=== PATIENT | female | born 1955 | race Caucasian/White ===

== ENCOUNTER 2016-10-04 08:54 | Outpatient (CLI) ==
[2016-10-04 09:28] LABS: HEMATOCRIT 30.9 % (37.0-47.0); HEMOGLOBIN 9.2 g/dl (12.0-16.0); MEAN CORPUSCULAR HGB CONC 29.8 (31.8-35.4); MEAN CORPUSCULAR VOLUME 90.6 fl (81.0-99.0); RED BLOOD COUNT 3.41 10^6/ul (4.20-5.40); WHITE BLOOD COUNT 11.2 K/ul (4.6-10.2)
--- NOTE | 2016-10-04 09:32 | DI ---
EXAM: Two x-rays of the chest. Comparison: 11/10/2008. Reason for exam: Cough and chronic obstructive pulmonary disease. FINDINGS: No pneumothorax, pleural effusion, or focal consolidation. The cardiac silhouette is mil dly prominent in size but not significantly changed from the previous exam. The imaged osseous stru ctures are unremarkable. Impression: No acute cardiopulmonary process.
== END 2016-10-04 08:55 | disposition home or self-care (01) ==
LOC: RAD 08:54
PROVIDERS: ATTEND Internal Medicine
DX: D64.9 Anemia, unspecified (principal); R05 Cough; J44.9 Chronic obstructive pulmonary disease, unspecified
CPT/HCPCS: 36415; 85027

== ENCOUNTER 2016-10-05 08:45 | Outpatient (CLI) ==
--- NOTE | 2016-10-05 09:49 | CT ---
EXAM: CT of the abdomen pelvis with contrast History: Abdominal pain and anemia. Comparison: None available. Technique: Multiplanar CT images through the abdomen pelvis were obtained following administration of IV contrast Findings: 4 mm nodule within the right middle lobe. Lung bases are free of consolidation. No acut e osseous abnormalities. No discrete gallstones identified by CT. Small hiatal hernia. No focal liver or splenic lesions. The liver is mildly enlarged. Atherosclerotic vascular calcifications. Pancreas is within normal l imits. Adrenal glands are unremarkable. No renal masses. No free air. No ascites. No bowel obst ruction. Scattered colonic stool. Mild colonic diverticulosis. The appendix is normal. Bladder i s not well distended but the wall is not thickened. Adnexal structures appear appropriate for patie nt's age. Impression: 1. No acute intra-abdominal or pelvic process. 2. Mild hepatomegaly. 3. Small hiatal hernia. 4. Mild colonic diverticulosis.
== END 2016-10-05 08:46 | disposition home or self-care (01) ==
LOC: RAD 08:45
PROVIDERS: ATTEND Internal Medicine
DX: D64.9 Anemia, unspecified (principal); R10.9 Unspecified abdominal pain

== ENCOUNTER 2016-10-06 08:42 | Outpatient (CLI) ==
[2016-10-06 09:02] LABS: BASOPHILS % (AUTO) 0.3 % (0.0-3.0); EOSINOPHILS # (AUTO) 0.3 K/ul (0.0-0.7); HEMATOCRIT 31.3 % (37.0-47.0); HEMOGLOBIN 9.2 g/dl (12.0-16.0); IMMATURE GRANULOCYTE % (AUTO) 0.6 % (0.0-5.0); LYMPHOCYTES # (AUTO) 2.2 K/uL (0.60-3.4); LYMPHOCYTES % (AUTO) 20.4 (10.0-50.0); MEAN CORPUSCULAR HEMOGLOBIN 27.1 pg (27.0-31.0); MEAN CORPUSCULAR HGB CONC 29.4 (31.8-35.4); MEAN CORPUSCULAR VOLUME 92.1 fl (81.0-99.0); MONOCYTES # (AUTO) 0.9 K/uL (0.4-2.0); MONOCYTES % (AUTO) 8.4 (0-10); NEUTROPHILS # (AUTO) 7.3 K/ul (2.0-6.9); NEUTROPHILS % (AUTO) 67.3; PLATELET COUNT 375 10^3/uL (140-440); WHITE BLOOD COUNT 10.81 K/ul (4.6-10.2)
== END 2016-10-06 08:43 | disposition home or self-care (01) ==
LOC: LAB 08:42
PROVIDERS: ATTEND Internal Medicine
DX: D64.9 Anemia, unspecified (principal)
CPT/HCPCS: 36415; 85025

== ENCOUNTER 2016-10-09 08:46 | Outpatient (CLI) ==
[2016-10-09 09:04] LABS: BASOPHILS % (AUTO) 0.2 % (0.0-3.0); EOSINOPHILS # (AUTO) 0.4 K/ul (0.0-0.7); EOSINOPHILS % (AUTO) 3.1 % (0.0-7.0); HEMATOCRIT 31.4 % (37.0-47.0); HEMOGLOBIN 9.3 g/dl (12.0-16.0); LYMPHOCYTES % (AUTO) 17.5 (10.0-50.0); MEAN CORPUSCULAR HEMOGLOBIN 27.7 pg (27.0-31.0); MEAN CORPUSCULAR HGB CONC 29.6 (31.8-35.4); MEAN CORPUSCULAR VOLUME 93.5 fl (81.0-99.0); MONOCYTES # (AUTO) 0.8 K/uL (0.4-2.0); MONOCYTES % (AUTO) 6.8 (0-10); NEUTROPHILS # (AUTO) 8.2 K/ul (2.0-6.9); NEUTROPHILS % (AUTO) 71.4; PLATELET COUNT 377 10^3/uL (140-440); RED BLOOD COUNT 3.36 10^6/ul (4.20-5.40); WHITE BLOOD COUNT 11.39 K/ul (4.6-10.2)
== END 2016-10-09 08:47 | disposition home or self-care (01) ==
LOC: LAB 08:46
PROVIDERS: ATTEND Internal Medicine
DX: D64.9 Anemia, unspecified (principal)
CPT/HCPCS: 36415; 85025

== ENCOUNTER 2018-08-23 17:27 | Emergency (ER) ==
[2018-08-23] MEDS ORDERED: LIDOCAINE HCL 1% SDV SUBCUT STA (17:31)
[2018-08-23 17:34] VITALS: BP 147/68; TEMP 98.5; BMI 33.3
--- NOTE | 2018-08-23 18:09 | ED.PDOC ---
General ED Provider: Dr. STEFANIA SORENSEN Chief Complaint: Hand Laceration Stated Complaint: hand laceration left hand Time Seen by Physician: 17:30 (see photos) Mode of Arrival: Walk-In Information Source: Patient Exam Limitations: No limitations Primary Care Provider: AMY MADISON Nursing and Triage Documentation Reviewed and Agree: Yes Does patient meet sepsis criteria?: No System Inflammatory Response Syndrome: Not Applicable Sepsis Protocol: For patient's 13 years and over: Temp is 96.8 and below OR 101 and greater Pulse >90 BPM Resp >20/minute Acutely Altered Mental Status Are patient's symptoms suggestive of a new infection, such as: -Pneumonia -Skin, Soft Tissue -Endocarditis -UTI -Bone, Joint Infection -Implantable Device -Acute Abdominal Infection -Wound Infection -Meningitis -Blood Stream Catheter Infection -Unknown Skin Complaint Exam - Lac/Torso/Upper Ext. Complaint/Exam Location of Injury: Left (hand see photos) Mechanism of Injury: Laceration Onset/Duration: today 1 hr ago Symptoms Are: Still present Initial Severity: Mild Current Severity: Mild Aggravating: None Alleviating: None (by knife) Differential Diagnoses: Laceration Review of Systems - Review Of Systems Constitutional: Reports: No symptoms Eyes: Reports: No symptoms Ears, Nose, Mouth, Throat: Reports: No symptoms Respiratory: Reports: No symptoms Cardiac: Reports: No symptoms GI: Reports: No symptoms : Reports: No symptoms Musculoskeletal: Reports: No symptoms Skin: Reports: Other (laceration left hand ) Neurological: Reports: No symptoms Endocrine: Reports: No symptoms Hematologic/Lymphatic: Reports: No symptoms All Other Systems: Reviewed and Negative Past Medical History - Past Medical History Previously Healthy: Yes Endocrine: Reports: None Cardiovascular: Reports: None Respiratory: Reports: None Hematological: Reports: None Gastrointestinal: Reports: None Genitourinary: Reports: None Neuro/Psych: Reports: None Musculoskeletal: Reports: None Cancer: Reports: None Last Menstrual Period: menopause - Surgical History General Surgical History: Reports: None - Family History Family History: Reports: None - Social History Smoking Status: Current every day smoker, Heavy tobacco smoker Hx Substance Use: No Alcohol Screening: None - Immunizations Tetanus Shot up to Date: No Physical Exam - Physical Exam Appearance: Well-appearing, No pain distress, Well-nourished Eyes: SILVIA, EOMI, Conjunctiva clear ENT: Ears normal, Nose normal, Oropharynx normal Respiratory: Airway patent, Breath sounds clear, Breath sounds equal, Respirations nonlabored Cardiovascular: RRR, Pulses normal, No rub, No murmur GI/: Soft, Nontender, No masses, Bowel sounds normal, No Organomegaly Musculoskeletal: Normal strength, ROM intact, No edema, No calf tenderness Skin: Warm, Dry (see photos of laceration left hand ), Normal color Neurological: Sensation intact, Motor intact, Reflexes intact, Cranial nerves intact, Alert, Oriented Psychiatric: Affect appropriate, Mood appropriate Procedures - Laceration/Wound Repair No standard instances Wound Description: Linear Wound Length (cm): 0.4mm Wound Width: 1mm Wound Depth: 1mm Wound Explored: Clean Wound Irrigated: No Wound Prep: Saline, Betadine Anesthesia: Lidocaine (plain 1 cc) Wound Repaired With: Sutures Suture Size and Type: 2 Number of Sutures: 0 Layer Closure?: No Deep Layer Suture Size and Type: 0 Sterile Dressing Applied?: Yes (see photos ) Critical Care Note - Critical Care Note Total Time (mins): 0 Course - Course Orders, Labs, Meds: Orders Category Date Time Status Lidocaine HCl/Pf [Lidocaine HCl 1% Sdv] MEDS 08/23/18 17:31 Stat 5 ml SUBCUT ONCE STA Medications Discontinued Medications Generic Name Dose Route Start Last Admin Trade Name Freq PRN Reason Stop Dose Admin Lidocaine HCl 5 ml 08/23/18 17:31 08/23/18 18:01 Lidocaine Hcl 1% Sdv SUBCUT 08/23/18 17:32 5 ml ONCE STA Administration Vital Signs: Temp Pulse Resp BP Pulse Ox 08/23/18 17:27 98.5 F 82 20 147/68 H 95 Departure - Departure Time of Disposition: 18:09 Disposition: HOME SELF-CARE Discharge Problem: Laceration of hand Instructions: Laceration (ED), Stitches Removal (ED) Condition: Good Pt referred to PMD for follow-up: Yes IPMP verified?: No Additional Instructions: Please call your Family Physician as soon as possible to schedule a follow-up appointment. Allergies/Adverse Reactions: Allergies Penicillins Adverse Reaction (Verified 08/23/18 17:35) Home Medications: Ambulatory Orders 1 [Unobtainable] 08/23/18 Disposition Discussed With: Patient
== END 2018-08-23 18:23 | disposition home or self-care (01) ==
LOC: ED 17:27
DX: S61.412A Laceration without foreign body of left hand, initial encounter (principal); W26.0XXA Contact with knife, initial encounter; F17.210 Nicotine dependence, cigarettes, uncomplicated
CPT/HCPCS: 99283

== ENCOUNTER 2018-10-16 14:42 | Outpatient (CLI) | END 2018-10-16 14:43 | disposition home or self-care (01) | LOC: LAB 14:42 | PROVIDERS: ATTEND Internal Medicine | DX: E87.5 Hyperkalemia (principal) | CPT/HCPCS: 36415; 80053 ==

== ENCOUNTER 2019-06-15 10:11 | Inpatient (IN) ==
[2019-06-15] MEDS ORDERED: ALBUTEROL 0.083% NEB NEB STA (10:35)
[2019-06-15 10:54] LABS: HEMATOCRIT 29.1 % (37.0-47.0)
--- NOTE | 2019-06-15 11:27 | ED.PDOC ---
General ED Provider: Dr. KINGA PADGETT Chief Complaint: Respiratory Complaint Stated Complaint: Shortness of breath worse with Minimal exertion. Minimal chest tightness Time Seen by Physician: 10:30 Mode of Arrival: Walk-In Information Source: Patient Exam Limitations: No limitations Primary Care Provider: AMY ORTIZ Nursing and Triage Documentation Reviewed and Agree: Yes Does patient meet sepsis criteria?: No If yes, has appropriate treatment been initiated?: No System Inflammatory Response Syndrome: Not Applicable Sepsis Protocol: For patient's 13 years and over: Temp is 96.8 and below OR 101 and greater Pulse >90 BPM Resp >20/minute Acutely Altered Mental Status Are patient's symptoms suggestive of a new infection, such as: -Pneumonia -Skin, Soft Tissue -Endocarditis -UTI -Bone, Joint Infection -Implantable Device -Acute Abdominal Infection -Wound Infection -Meningitis -Blood Stream Catheter Infection -Unknown Respiratory Complaint Exam Shortness of Air Complaint/Exam Symptoms Are: Still present Timing: Intermittent Initial Severity: Moderate Current Severity: Mild Character: Reports Dyspnea at rest and Dyspnea on exertion Aggravating: Reports Deep breaths, Recumbent position and URI Alleviating: Reports Upright position Associated Signs and Symptoms: Reports Cough, Wheezing and Nasal congestion Related History: Reports Similar episode Pulmonary Embolism Risk Factors: Reports None Cardiac Risk Factors: Reports Smoking, Diabetes and Hypertension; Denies CAD Pseudomonas Risk Factors: Reports None Tuberculosis Risk Factors: Reports None Home Oxygen Use: No Recent Stress Test: No Recent Echo/LV Function: No Respiratory Distress: Mild Stridor Present: No Tracheal Deviation: No Subcutaneous Emphysema: No Accessory Muscle Use: No Retractions: Not Present Diminished Breath Sounds: No Prolonged Expiratory Phase: No Unable to Speak Full Sentences: No Fatigue: Yes Leg Swelling: No Len's Sign Present: No Grunting Respirations: No Kussmaul Respirations: No Differential Diagnoses: Chest Wall Pain, COPD Exacerbation, Bronchospasm and URI Review of Systems Review Of Systems Constitutional: Reports No symptoms Eyes: Reports No symptoms Ears, Nose, Mouth, Throat: Reports No symptoms Respiratory: Reports Cough, Short of air, Stridor and Wheezing Cardiac: Reports No symptoms and Palpitations; Denies Chest pain, Edema, Irregular heart rate and Lightheadedness GI: Reports No symptoms : Reports No symptoms Musculoskeletal: Reports No symptoms Skin: Reports No symptoms Neurological: Reports No symptoms Endocrine: Reports No symptoms Hematologic/Lymphatic: Reports No symptoms All Other Systems: Reviewed and Negative PFSH Medical History (Updated 06/16/19 @ 08:34 by PO CORONA) Diabetes (Acute) Hx of tonsillectomy (Acute) Hypertension (Acute) Pneumonia (Acute) Family History (Updated 06/15/19 @ 13:40 by SONDRA GÓMEZ, RN) Mother Diabetes Social History (Updated 06/15/19 @ 13:40 by SONDRA GÓMEZ, RN) Smoking and tobacco status: Current every day smoker Tobacco type: cigarettes Tobacco: How many years used: 45 (1 PACK PER DAY) Second hand smoke exposure: Yes Female Reproductive History Menstrual Hx Hysterectomy: No Hx Tubal Ligation: Yes Physical Exam Physical Exam Appearance: Ill-appearing Ill-appearing: Mild Pain Distress: Mild Eyes: SILVIA, EOMI and Conjunctiva clear ENT: Ears normal, Nose normal and Oropharynx normal Neck: Supple Respiratory: Airway patent, Breath sounds clear, Breath sounds diminished, Respirations nonlabored and Wheezes Cardiovascular: RRR, Pulses normal, No rub and No murmur GI/: Soft, Nontender, No masses, Bowel sounds normal and No Organomegaly Musculoskeletal: Normal strength, ROM intact, No edema and No calf tenderness Skin: Warm, Dry and Normal color Neurological: Sensation intact, Motor intact, Reflexes intact, Cranial nerves i ntact, Alert and Oriented Psychiatric: Affect appropriate and Mood appropriate Interpretation Radiology Interpretation Radiology Interpretation By: Radiologist Exam Interpreted: CXR (Mild right basilar atelectasis and/or consolidation. Trace right pleural effusion versus costophrenic angle atelectasis. Mild interstitial prominence could represent bronchiolitis or interstitial edema.) EKG Interpretation Time of EKG #1: 10:43 Rate: Normal Rhythm: Sinus Ectopy: None [place]: [place] ST Segment: Normal Interpretation: non specific intraventricular block Physician Notification Case Discussed Physician Notified: Dr Ortiz -agrees with admission Time of Notification: 12:40 Critical Care Note Critical Care Note Total Time (mins): 30 Course Course Hematology/Chemistry: 06/19/19 05:20 06/19/19 05:20 Orders, Labs, Meds: Lab Review 06/15/19 06/15/19 06/15/19 10:40 10:49 10:49 WBC 7.81 RBC 2.98 L Hgb 9.0 L Hct 29.1 L MCV 97.7 MCH 30.2 MCHC 30.9 L RDW Coeff of Radha 13.3 Plt Count 221 Immature Gran % (Auto) 0.4 Neut % (Auto) 79.6 Lymph % (Auto) 8.8 L [place] % (Auto) 10.0 Eos % (Auto) 0.9 Baso % (Auto) 0.3 Immature Gran # (Auto) 0.0 Neut # (Auto) 6.2 Lymph # (Auto) 0.7 [place] # (Auto) 0.8 Eos # (Auto) 0.1 Baso # (Auto) 0.0 Puncture Site O2 Saturation ABG pH ABG pCO2 ABG pO2 ABG HCO3 ABG Total CO2 ABG Base Excess [place] Test FiO2 % Sodium 137.2 Potassium 4.69 Chloride 105.6 Carbon Dioxide 22.9 Anion Gap 13.39 BUN 9.0 Creatinine 0.80 Estimated GFR (MDRD) 73.00 BUN/Creatinine Ratio 11.25 Glucose 182.6 H Calcium 8.83 Total Bilirubin 0.50 AST 37.4 H ALT 26.9 Alkaline Phosphatase 136.9 Troponin I < 0.012 Total Protein 7.23 Albumin 3.85 Globulin 3.38 Albumin/Globulin Ratio 1.13 Urine Color Urine Clarity Urine pH Ur Specific [place] Urine Protein Urine Glucose (UA) Urine Ketones Urine Blood Urine Nitrite Urine Bilirubin Urine Urobilinogen Ur Leukocyte Esterase Urine Microscopic RBC Ur Squamous Epith Cells Urine Mucus Influ A Molecular Assay Negative by naat Influ B Molecular Assay Negative by naat 06/15/19 06/15/19 11:05 11:30 WBC RBC Hgb Hct MCV MCH MCHC RDW Coeff of Radha Plt Count Immature Gran % (Auto) Neut % (Auto) Lymph % (Auto) [place] % (Auto) Eos % (Auto) Baso % (Auto) Immature Gran # (Auto) Neut # (Auto) Lymph # (Auto) [place] # (Auto) Eos # (Auto) Baso # (Auto) Puncture Site Rr O2 Saturation 94.0 L ABG pH 7.400 ABG pCO2 33.9 L ABG pO2 69.0 L ABG HCO3 21.0 L ABG Total CO2 22 ABG Base Excess -4 L [place] Test + FiO2 % 21.0 Sodium Potassium Chloride Carbon Dioxide Anion Gap BUN Creatinine Estimated GFR (MDRD) BUN/Creatinine Ratio Glucose Calcium Total Bilirubin AST ALT Alkaline Phosphatase Troponin I Total Protein Albumin Globulin Albumin/Globulin Ratio Urine Color Yellow Urine Clarity Clear Urine pH 5.0 Ur Specific [place] 1.025 Urine Protein 1+ Urine Glucose (UA) Negative Urine Ketones Negative Urine Blood 1+ Urine Nitrite Negative Urine Bilirubin Negative Urine Urobilinogen 0.2 Ur Leukocyte Esterase Negative Urine Microscopic RBC 2-5 Ur Squamous Epith Cells 5-10 Urine Mucus 1+ Influ A Molecular Assay Influ B Molecular Assay Orders Category Date Time Status ABG DRAW REQUEST Stat CARDIO 06/15/19 11:31 Completed EKG-(ED ONLY) Stat CARDIO 06/15/19 10:35 Completed NEBULIZER TREATMENT Stat CARDIO 06/15/19 10:37 Completed NEBULIZER TREATMENT Stat CARDIO 06/15/19 11:51 Completed OXYGEN Routine CARDIO 06/15/19 11:54 Completed ABG Stat LAB 06/15/19 11:30 Completed CBC W/ AUTO DIFF Stat LAB 06/15/19 10:49 Completed CMP [COMPREHENSIVE METABOLIC PANEL] Stat LAB 06/15/19 10:49 Completed FLU A & B MOLECULAR [FLU A/B MOLECULAR] Stat LAB 06/15/19 10:40 Completed TROPONIN I Stat LAB 06/15/19 10:49 Completed UA [URINALYSIS C & S IF INDICATED] Stat LAB 06/15/19 11:05 Completed Albuterol Sulfate 0.083% Neb [Albuterol 0.083% Neb] MEDS 06/15/19 10:35 Discontinued 2.5 mg NEB ONCE STA Azithromycin [Zithromax] MEDS 06/15/19 11:50 Discontinued 500 mg PO ONCE STA Budesonide [Pulmicort 0.5 mg/2 ml] MEDS 06/15/19 21:33 Discontinued 0.5 mg NEB ONCE STA Ceftriaxone/D5w 1 gm Premix [Rocephin 1 gm/50 ml D5w] MEDS 06/15/19 11:50 Discontinued 1 gm in 50 ml IV ONCE Ipratropium/Albuterol Neb [Duoneb] MEDS 06/15/19 11:50 Discontinued 3 ml NEB ONCE STA Methylprednisolone Sod Succ/Pf [Solu-Medrol 125 mg] MEDS 06/15/19 11:50 Discontinued 125 mg IVP ONCE STA Sodium Chloride 0.9% [Sodium Chloride] 1,000 ml MEDS 06/15/19 11:55 Discontinued IV BOLUS CHEST, 2 VIEWS PA & LAT Stat RADS 06/15/19 10:35 Completed Medications Discontinued Medications Generic Name Dose Route Start Last Admin Trade Name Freq PRN Reason Stop Dose Admin Acetaminophen 650 mg 06/15/19 12:57 Tylenol PO Q4H PRN Fever >101 Albuterol Sulfate 2.5 mg 06/15/19 10:35 06/15/19 10:50 Albuterol 0.083% Neb NEB 06/15/19 10:36 2.5 mg ONCE STA Administration Albuterol/Ipratropium 3 ml 06/15/19 11:50 06/15/19 12:33 Duoneb NEB 06/15/19 11:51 3 ml ONCE STA Administration Albuterol/Ipratropium 3 ml 06/15/19 14:00 06/19/19 14:06 Duoneb NEB Not Given RTQID WILL Azithromycin 500 mg 06/15/19 11:50 06/15/19 12:04 Zithromax PO 06/15/19 11:51 500 mg ONCE STA Administration Azithromycin 250 mg 06/17/19 09:00 06/19/19 08:53 Zithromax PO 06/20/19 09:01 250 mg DAILY WILL Administration Bisoprolol Fumarate 10 mg 06/16/19 09:00 06/19/19 08:51 Zebeta PO 10 mg DAILY WILL Administration Budesonide 0.5 mg 06/15/19 21:33 06/16/19 05:13 Pulmicort 0.5 Mg/2 Ml NEB 06/15/19 21:34 0.5 mg ONCE STA Administration Cephalexin 500 mg 06/19/19 05:00 06/19/19 12:54 Keflex PO 06/22/19 04:59 500 mg Q8HR WILL Administration Ezetimibe 10 mg 06/16/19 09:00 06/19/19 08:52 Zetia PO 10 mg DAILY WILL Administration Enoxaparin Sodium 40 mg 06/15/19 13:30 06/19/19 08:55 Lovenox SUBCUT Not Given DAILY WILL Furosemide 20 mg 06/16/19 10:04 06/16/19 10:39 Lasix IVP 06/16/19 10:05 20 mg ONCE STA Administration CEFTRIAXONE/D5W 1 GM PREMIX 1 gm in 50 mls @ 75 mls/hr 06/15/19 11:50 06/15/19 12:05 Rocephin 1 Gm/50 Ml D5w IV 06/15/19 12:29 75 mls/hr ONCE STA Administration Sodium Chloride 1,000 mls @ 1,000 mls/hr 06/15/19 11:55 06/15/19 12:05 Sodium Chloride IV 06/15/19 12:54 1,000 mls/hr BOLUS STA Administration Sodium Chloride 1,000 mls @ 75 mls/hr 06/15/19 13:30 06/16/19 14:08 Sodium Chloride IV Not Given .[id number] WILL CEFTRIAXONE/D5W 1 GM PREMIX 1 gm in 50 mls @ 75 mls/hr 06/16/19 09:00 06/18/19 08:47 Rocephin 1 Gm/50 Ml D5w IV 06/19/19 08:59 75 mls/hr DAILY WILL Administration Lorazepam 0.5 mg 06/16/19 10:05 06/16/19 20:49 Ativan PO 0.5 mg BEDTIME PRN Administration Restlessness Lorazepam 0.5 - 1 mg 06/17/19 18:51 06/18/19 21:18 Ativan PO 1 mg BEDTIME PRN Administration Restlessness Losartan Potassium 25 mg 06/17/19 09:00 06/19/19 08:52 Cozaar PO 25 mg DAILY WILL Administration Metformin HCl 1,000 mg 06/15/19 21:00 06/16/19 20:49 Glucophage PO 1,000 mg BID WILL Administration Metformin HCl 1,000 mg 06/17/19 09:00 06/19/19 08:51 Glucophage PO 1,000 mg BIDWM WILL Administration Methylprednisolone Sodium Succinate 125 mg 06/15/19 11:50 06/15/19 12:05 Solu-Medrol 125 Mg IVP 06/15/19 11:51 125 mg ONCE STA Administration Methylprednisolone Sodium Succinate 125 mg 06/15/19 21:00 06/19/19 05:10 Solu-Medrol 125 Mg IVP 125 mg Q8HR WILL Administration Ondansetron HCl 4 mg 06/15/19 12:57 Zofran 4 Mg/2 Ml IVP Q6H PRN Nausea / Vomiting Prednisone 10 mg 06/19/19 08:30 06/19/19 08:53 Prednisone PO 10 mg DAILYWM WILL Administration Promethazine HCl/Codeine 10 ml 06/15/19 17:56 06/18/19 20:22 Phenergan With Codeine 6.25/10 Mg/5 Ml PO 10 ml Q6H PRN Administration Cough Simvastatin 40 mg 06/16/19 09:00 06/19/19 08:52 Zocor PO 40 mg DAILY WILL Administration Sitagliptin Phosphate 100 mg 06/16/19 09:00 06/19/19 08:52 Januvia PO 100 mg DAILY WILL Administration Sodium Chloride 1 syr 06/17/19 13:00 06/19/19 12:54 Saline Flush IVF 1 syr Q8HR WILL Administration Tramadol HCl 50 mg 06/16/19 10:05 06/18/19 21:18 Ultram PO 50 mg BEDTIME PRN Administration Restlessness Vital Signs: Temp Pulse Resp BP Pulse Ox 06/15/19 10:12 97.4 F L 98 H 20 180/68 H 93 L Discharge Plan Discharge Patient Disposition: ADMITTED INPATIENT Discharge Problem: Pneumonia ED Provider: KINGA PADGETT Condition: Stable Discharge Date/Time: 06/15/19 13:16
--- NOTE | 2019-06-15 11:33 | DI ---
EXAMINATION: Frontal and lateral views of the chest. HISTORY: Shortness of breath COMPARISON: 10/04/2016 FINDINGS: Mild lateral right basilar opacity is seen with slight right costophrenic angle blunting. Mild inter stitial prominence is identified. No pneumothorax is seen. The cardiomediastinal silhouette is within normal limits. Aortic calcified atherosclerotic plaque is seen. IMPRESSION: Mild right basilar atelectasis and/or consolidation. Trace right pleural effusion versus costophrenic angle atelectasis. Mild interstitial prominence could represent bronchiolitis or interstitial edema.
[2019-06-15] MEDS ORDERED: ROCEPHIN 1 GM/50 ML D5W 1 GM/50 ML BAG IV STA (11:50)
[2019-06-15] MEDS ORDERED: ZITHROMAX PO STA (11:50)
[2019-06-15] MEDS ORDERED: DUONEB NEB STA (11:50)
[2019-06-15] MEDS ORDERED: SOLU-MEDROL 125 MG IVP STA (11:50)
[2019-06-15] MEDS ORDERED: SODIUM CHLORIDE 1,000 ML IV STA (11:55)
[2019-06-15] MEDS ORDERED: TYLENOL PO PRN (12:57)
[2019-06-15] MEDS ORDERED: ZOFRAN 4 MG/2 ML IVP PRN (12:57)
[2019-06-15] MEDS: SODIUM CHLORIDE 1,000 ML IV SCH (13:29)
[2019-06-15 13:31] VITALS: BMI 33.5
[2019-06-15] MEDS: LOVENOX SUBCUT SCH (13:31)
[2019-06-15] MEDS: DUONEB NEB SCH ×2 (14:59→20:36)
[2019-06-15] MEDS: PHENERGAN WITH CODEINE 6.25/10 MG/5 ML PO PRN (18:25)
[2019-06-15] MEDS: GLUCOPHAGE PO SCH (20:06)
[2019-06-15] MEDS: SOLU-MEDROL 125 MG IVP SCH (20:06)
[2019-06-15] MEDS ORDERED: PULMICORT 0.5 MG/2 ML NEB STA (21:33)
[2019-06-16] MEDS: PHENERGAN WITH CODEINE 6.25/10 MG/5 ML PO PRN ×3 (00:27→19:56)
[2019-06-16] MEDS: SODIUM CHLORIDE 1,000 ML IV SCH ×2 (00:29→14:08)
[2019-06-16] MEDS: DUONEB NEB SCH ×4 (04:36→20:40)
[2019-06-16 05:04] LABS: HEMATOCRIT 29.4 % (37.0-47.0)
[2019-06-16] MEDS: SOLU-MEDROL 125 MG IVP SCH ×3 (05:25→20:48)
--- NOTE | 2019-06-16 09:17 | PCM.PROG ---
Attending Provider: ATTENDING PROVIDER: Dr. AMY MADISON This patient is seen with Dinah Low, Nurse Practitioner. DATE OF SERVICE: 06/16/19 SUBJECTIVE: This 63 year old /WHITE F was hospitalized 06/15/19. The patient is lying in bed resting comfortably. She came in with shortness of breath. She has REVIEW OF SYSTEMS: CONSTITUTIONAL: Positive for weakness. No night sweats. No fatigue, malaise, lethargy. No fever or chills. HEENT: Eyes: No visual changes. No eye pain. No eye discharge. ENT: No runny nose. No epistaxis. No sinus pain. No odynophagia. No congestion. RESPIRATORY: Cough. No hemoptysis. Shortness of breath. CARDIOVASCULAR: No angina symptoms. No CHF symptoms. No atypical chest pain for CAD. No palpitations. No orthopnea.. GASTROINTESTINAL: No abdominal pain. No nausea or vomiting. No diarrhea or constipation. No hematemesis. No hematochezia. GENITOURINARY: No urgency. No frequency. No dysuria. No hematuria. No obstructive symptoms. No discharge. No pain. No significant abnormal bleeding. MUSCULOSKELETAL: No musculoskeletal pain; no joint swelling. NEUROLOGICAL: Awake, alert, oriented to time, place and person. No headache. No neck pain. No syncope. No seizures. No dizziness. PSYCHIATRIC: Not anxious. No depression. No suicidal thoughts. No homicidal thoughts. SKIN: No rash. No lesions. No wounds. ENDOCRINE: No unexplained weight loss. No weight gain. HEMATOLOGIC/LYMPHATIC: No anemia. No purpura. No petechiae. No prolonged or ex cessive bleeding. No palpable lymph nodes. PHYSICAL EXAMINATION: GENERAL: The patient is awake, alert and oriented, lying/sitting in bed in no distress. VITAL SIGNS: Temperature 98.0 F, Pulse 99, Respiratory Rate 15, BP 133/57, Pulse Ox 94% HEENT: Head normocephalic, atraumatic. Eyes: Extraocular muscles are intact. Pupils are equal, round and reactive to light and accommodation. Ears: No lesions. Nose appeared normal. Throat: No exudate or erythema. NECK: Supple. No JVD, no carotid bruit. No lymphadenopathy or thyromegaly. LUNGS: Severely diminished breath sounds bilaterally. Clear to auscultation. Percussion note normal. Chest symmetrical. HEART: S1, S2, no S3. No murmurs. No cyanosis or clubbing. No ascites. Pulses: Dorsalis pedis and posterior tibial pulses +1 to +2 both sides. ABDOMEN: Soft. Non-tender. Bowel sounds active. No CVA tenderness. No mass felt. EXTREMITIES: No edema. Full range of motion of all extremities, equal. NEUROLOGIC: No focal deficit. Cranial nerves II through XII are grossly intact. No headache, no double vision or headache. SKIN: Not dry. Intact. Turgor-normal. LYMPHATIC: No palpable lymph nodes/no lymphedema. MUSCULOSKELETAL: Normal joints with no swelling. Muscle tone is normal. LAB REVIEW: 06/16/19 04:38 06/16/19 04:38 06/16/19 04:38: Sodium 138.0, Potassium 4.81, Chloride 106.8, Carbon Dioxide 21.9 L, Anion Gap 14.11, BUN 13.4, Creatinine 0.87, Estimated GFR (MDRD) 66.00, BUN/Creatinine Ratio 15.40, Glucose 188.8 H, Calcium 9.32, Total Bilirubin 0.42, AST 30.8, ALT 27.3, Alkaline Phosphatase 127.7, Total Protein 7.23, Albumin 3.88, Globulin 3.35, Albumin/Globulin Ratio 1.15 06/16/19 04:38: WBC 7.00, RBC 3.05 L, Hgb 9.2 L, Hct 29.4 L, MCV 96.4, MCH 30.2, MCHC 31.3 L, RDW Coeff of Radha 13.4, Plt Count 245, Immature Gran % (Auto) 1.0, Neut % (Auto) 83.0, Lymph % (Auto) 12.6, [place] % (Auto) 3.3, Eos % (Auto) 0.1, Baso % (Auto) 0.0, Immature Gran # (Auto) 0.1, Neut # (Auto) 5.8, Lymph # (Auto) 0.9, [place] # (Auto) 0.2 L, Eos # (Auto) 0.0, Baso # (Auto) 0.0 06/15/19 11:30: Puncture Site Rr, O2 Saturation 94.0 L, ABG pH 7.400, ABG pCO2 33.9 L, ABG pO2 69.0 L, ABG HCO3 21.0 L, ABG Total CO2 22, ABG Base Excess -4 L, [place] Test +, FiO2 % 21.0 06/15/19 11:05: Urine Color Yellow, Urine Clarity Clear, Urine pH 5.0, Ur Specific [place] 1.025, Urine Protein 1+, Urine Glucose (UA) Negative, Urine Ketones Negative, Urine Blood 1+, Urine Nitrite Negative, Urine Bilirubin Negative, Urine Urobilinogen 0.2, Ur Leukocyte Esterase Negative, Urine Microscopic RBC 2-5, Ur Squamous Epith Cells 5-10, Urine Mucus 1+ 06/15/19 10:49: Sodium 137.2, Potassium 4.69, Chloride 105.6, Carbon Dioxide 22.9, Anion Gap 13.39, BUN 9.0, Creatinine 0.80, Estimated GFR (MDRD) 73.00, BUN/Creatinine Ratio 11.25, Glucose 182.6 H, Calcium 8.83, Total Bilirubin 0.50, AST 37.4 H, ALT 26.9, Alkaline Phosphatase 136.9, Troponin I < 0.012, Total Protein 7.23, Albumin 3.85, Globulin 3.38, Albumin/Globulin Ratio 1.13 06/15/19 10:49: WBC 7.81, RBC 2.98 L, Hgb 9.0 L, Hct 29.1 L, MCV 97.7, MCH 30.2, MCHC 30.9 L, RDW Coeff of Radha 13.3, Plt Count 221, Immature Gran % (Auto) 0.4, Neut % (Auto) 79.6, Lymph % (Auto) 8.8 L, [place] % (Auto) 10.0, Eos % (Auto) 0.9, Baso % (Auto) 0.3, Immature Gran # (Auto) 0.0, Neut # (Auto) 6.2, Lymph # (Auto) 0.7, [place] # (Auto) 0.8, Eos # (Auto) 0.1, Baso # (Auto) 0.0 06/15/19 10:40: Influ A Molecular Assay Negative by naat, Influ B Molecular Assay Negative by naat ASSESSMENT: Please see below. 1. Acute pneumonitis 2. Shortness of breath PLAN: 1. D/C fluids. 2. Lasix 20 mg IV. Plan and coordination of the patient's care discussed in the presence of Night Manager and nurse. CONDITION: Stable SCRIBED BY: PO CORONA Tape Weaver scribed while in presence of service performed by Dr. Madison/Dinah Low APRN on 06/16/19 ([id number])
[2019-06-16] MEDS: ZEBETA PO SCH (09:57)
[2019-06-16] MEDS: ZETIA PO SCH (09:57)
[2019-06-16] MEDS: JANUVIA PO SCH (09:57)
[2019-06-16] MEDS: GLUCOPHAGE PO SCH ×2 (09:57→20:49)
[2019-06-16] MEDS: ROCEPHIN 1 GM/50 ML D5W 1 GM/50 ML BAG IV SCH (09:58)
[2019-06-16] MEDS: ZOCOR PO SCH (09:58)
[2019-06-16] MEDS: LOVENOX SUBCUT SCH (09:58)
[2019-06-16] MEDS ORDERED: LASIX IVP STA (10:04)
[2019-06-16] MEDS ORDERED: ATIVAN PO PRN (10:05)
--- NOTE | 2019-06-16 14:45 | PN ---
DATE OF SERVICE: 06/16/19 SUBJECTIVE: The patient was seen and examined with the Nurse Practitioner. Bronchitis is a lot better. PHYSICAL EXAMINATION: HEENT: Head normocephalic, atraumatic. Eyes: Extraocular muscles are intact. Pupils are equal, round and reactive to light and accommodation. Ears: No lesions. Nose appeared normal. Throat: No exudate or erythema. NECK: Supple. No JVD, no carotid bruit. No lymphadenopathy or thyromegaly. LUNGS: Decreased breath sounds with good air entry. Clear to auscultation. Percussion note normal. Chest symmetrical. HEART: S1, S2, no S3. No murmurs. No cyanosis or clubbing. No ascites. Pulses: Dorsalis pedis and posterior tibial pulses +1 to +2 bilaterally. ABDOMEN: Soft. Nontender. Bowel sounds active. No CVA tenderness. No mass felt. EXTREMITIES: No pedal edema. Full range of motion of all extremities, equal. NEUROLOGIC: No focal deficit. Cranial nerves II through XII are grossly intact. No headache, no double vision or headache. SKIN: Not dry. Intact. Turgor - normal. LYMPHATIC: No palpable lymph nodes/no lymphedema. MUSCULOSKELETAL: Normal joints with no swelling. Muscle tone is normal. CARDIOVASCULAR STATUS: Stable. TIME SPENT: More than 30 minutes. Plan and coordination of the patient's care discussed in the presence of nurse. ALE
[2019-06-16] MEDS: ULTRAM PO PRN (20:49)
[2019-06-17 04:26] LABS: HEMATOCRIT 28.6 % (37.0-47.0)
[2019-06-17] MEDS: DUONEB NEB SCH ×4 (04:50→20:05)
[2019-06-17] MEDS: SOLU-MEDROL 125 MG IVP SCH ×3 (05:06→20:54)
[2019-06-17] MEDS: PHENERGAN WITH CODEINE 6.25/10 MG/5 ML PO PRN ×3 (05:06→19:43)
[2019-06-17] MEDS: ZEBETA PO SCH (08:16)
[2019-06-17] MEDS: ZETIA PO SCH (08:16)
[2019-06-17] MEDS: JANUVIA PO SCH (08:16)
[2019-06-17] MEDS: ZOCOR PO SCH (08:16)
[2019-06-17] MEDS: LOVENOX SUBCUT SCH (08:17)
[2019-06-17] MEDS: ROCEPHIN 1 GM/50 ML D5W 1 GM/50 ML BAG IV SCH (08:17)
[2019-06-17] MEDS: GLUCOPHAGE PO SCH ×2 (08:17→17:07)
[2019-06-17] MEDS: ZITHROMAX PO SCH (08:17)
[2019-06-17] MEDS: COZAAR PO SCH (08:23)
--- NOTE | 2019-06-17 09:26 | PCM.PROG ---
Attending Provider: ATTENDING PROVIDER: Dr. AMY MADISON DATE OF SERVICE: 06/17/19 SUBJECTIVE: This 63 year old /WHITE F was hospitalized 06/15/19 with acute bronchitis and pneumonitis. The patient has improved. She is coughing much less. No symptoms of CHF or coronary insufficiency. She is a smoker. REVIEW OF SYSTEMS: CONSTITUTIONAL: No night sweats. No fatigue, malaise, lethargy. No fever or chills. HEENT: Eyes: No visual changes. No eye pain. No eye discharge. ENT: No runny nose. No epistaxis. No sinus pain. No odynophagia. No congestion. RESPIRATORY: No cough, no congestion. No hemoptysis. No shortness of breath. CARDIOVASCULAR: No angina symptoms. No CHF symptoms. No atypical chest pain for CAD. No palpitations. No orthopnea.. GASTROINTESTINAL: No abdominal pain. No nausea or vomiting. No diarrhea or constipation. No hematemesis. No hematochezia. GENITOURINARY: No urgency. No frequency. No dysuria. No hematuria. No obstructive symptoms. No discharge. No pain. No significant abnormal bleeding. MUSCULOSKELETAL: No musculoskeletal pain; no joint swelling. NEUROLOGICAL: Awake, alert, oriented to time, place and person. No headache. No neck pain. No syncope. No seizures. No dizziness. PSYCHIATRIC: Not anxious. No depression. No suicidal thoughts. No homicidal thoughts. SKIN: No rash. No lesions. No wounds. ENDOCRINE: No unexplained weight loss. No weight gain. HEMATOLOGIC/LYMPHATIC: No anemia. No purpura. No petechiae. No prolonged or excessive bleeding. No palpable lymph nodes. PHYSICAL EXAMINATION: GENERAL: The patient is awake, alert and oriented, lying/sitting in bed in no distress. VITAL SIGNS: Temperature 97.5 F, Pulse 95, Respiratory Rate 20, BP 146/61, Pulse Ox 98% HEENT: Head normocephalic, atraumatic. Eyes: Extraocular muscles are intact. Pupils are equal, round and reactive to light and accommodation. Ears: No lesions. Nose appeared normal. Throat: No exudate or erythema. NECK: Supple. No JVD, no carotid bruit. No lymphadenopathy or thyromegaly. LUNGS: Decreased breath sounds. Clear to auscultation. Percussion note normal. Chest symmetrical. HEART: S1, S2, no S3. No murmurs. No cyanosis or clubbing. No ascites. Pulses: Dorsalis pedis and posterior tibial pulses +1 to +2 both sides. ABDOMEN: Soft. Non-tender. Bowel sounds active. No CVA tenderness. No mass felt. EXTREMITIES: No pedal edema. Full range of motion of all extremities, equal. NEUROLOGIC: No focal deficit. Cranial nerves II through XII are grossly intact. No headache, no double vision or headache. SKIN: Warm and dry. Intact. Turgor-normal. LYMPHATIC: No palpable lymph nodes/no lymphedema. MUSCULOSKELETAL: Normal joints with no swelling. Muscle tone is normal. LAB REVIEW: 06/17/19 04:20 06/17/19 04:20 06/17/19 04:20: Sodium 137.0, Potassium 4.80, Chloride 103.0, Carbon Dioxide 21.7 L, Anion Gap 17.10, BUN 30.5 H, Creatinine 0.99, Estimated GFR (MDRD) 57.00, BUN/Creatinine Ratio 30.80, Glucose 185.9 H, Calcium 9.79, Total Bilirubin 0.36, AST 52.1 H, ALT 28.9, Alkaline Phosphatase 104.3, Total Protein 7.00, Albumin 3.76, Globulin 3.24, Albumin/Globulin Ratio 1.16 06/17/19 04:20: WBC 15.23 H D, RBC 2.94 L, Hgb 8.9 L, Hct 28.6 L, MCV 97.3, MCH 30.3, MCHC 31.1 L, RDW Coeff of Radha 13.7, Plt Count 260, Immature Gran % (Auto) 0.7, Neut % (Auto) 87.4, Lymph % (Auto) 7.9 L, Rush % (Auto) 3.9, Eos % (Auto) 0.0, Baso % (Auto) 0.1, Immature Gran # (Auto) 0.1, Neut # (Auto) 13.3 H, Lymph # (Auto) 1.2, Rush # (Auto) 0.6, Eos # (Auto) 0.0, Baso # (Auto) 0.0 ASSESSMENT: Please see below. 1. Acute bronchitis with pneumonitis. 2. Chronic lung disease. 3. Possibility of CHF. 4. Chronic anemia. 5. Diabetes mellitus. PLAN: 1. Counseling for smoking done. 2. The patient was given Lasix so BUN has gone up. 3. Will do Echocardiogram to evaluate LV function. 4. PFT to evaluate respiratory function. 5. Continue antibiotics. 6. Add Losartan 25 mg daily. Plan and coordination of the patient's care discussed in the presence of Ear Nose Throat Physician and nurse. CONDITION: Stable SCRIBED BY: PO CORONA Change Control Analyst scribed while in presence of service performed by Dr. AMY MADISON on 06/17/19 ([id number])
--- NOTE | 2019-06-17 10:39 | HP ---
DATE OF SERVICE: 06/15/19 HISTORY OF PRESENT ILLNESS: This 63-year-old white female who presented to the Emergency Room complaining of worsening shortness of breath with minimal exertion. She had chest tightness but had cough and congestion for the past 2 to 3 days. She has a history of COPD and is a heavy smoker. PAST MEDICAL HISTORY: Dyslipidemia Anemia Obesity Hypertension Vitamin D deficiency Diabetes mellitus type 2 COPD Smoker Fatty liver B12 deficiency Chronic kidney disease, Stage 2 PAST SURGICAL HISTORY: Tubal ligation Tonsillectomy Adenoidectomy REVIEW OF SYSTEMS: CONSTITUTIONAL: No night sweats. No fatigue, malaise, lethargy. No fever or chills. HEENT: Eyes: No visual changes. No eye pain. No eye discharge. ENT: No runny nose. No epistaxis. No sinus pain. No sore throat. No odynophagia. No ear pain. No congestion. RESPIRATORY: Positive for cough and shortness of breath. No congestion. No hemoptysis. CARDIOVASCULAR: No angina symptoms. No CHF symptoms. No atypical chest pain for CAD. No palpitations. No PND. No orthopnea. GASTROINTESTINAL: No abdominal pain. No nausea or vomiting. No diarrhea or constipation. No hematemesis. No hematochezia. GENITOURINARY: No urgency. No frequency. No dysuria. No hematuria. No obstructive symptoms. No discharge. No pain. No significant abnormal bleeding. MUSCULOSKELETAL: No musculoskeletal pain. No joint swelling. No arthritis. NEUROLOGICAL: No headache. No neck pain. No syncope. No seizures. No dizziness. PSYCHIATRIC: Not anxious. No depression. No suicidal thoughts. No homicidal thoughts. SKIN: No rash. No lesions. No wounds. ENDOCRINE: No unexplained weight loss. No weight gain. HEMATOLOGIC/LYMPHATIC: No anemia. No purpura. No petechiae. No prolonged or excessive bleeding. No palpable lymph nodes. PERSONAL/FAMILY/SOCIAL HISTORY: She is a heavy smoker. No alcohol or ilicit drug use. She is and lives at home. MEDICATIONS: Januvia 100 mg p.o. daily Ativan 0.5 mg p.o. bedtime p.r.n. Ezetimibe-Simvastatin 10-40 mg one tab p.o. daily Tramadol 50 mg p.o. bedtime p.r.n. Metformin 1,000 mg p.o. b.i.d. Bisoprolol 10 mg p.o. daily Albuterol two puff INH q.i.d. p.r.n. ALLERGIES: PENICILLIN, ELAVIL, LEXAPRO, TRAZODONE PHYSICAL EXAMINATION: VITAL SIGNS: Temperature 97.4, heart rate 98, respirations 20, BP 180/68, pulse ox 93%. HEENT: Head normocephalic, atraumatic. Eyes: Extraocular muscles are intact. Pupils are equal, round and reactive to light and accommodation. Ears: No lesions. Nose appeared normal. Throat: No exudate or erythema. NECK: Supple. No JVD, no carotid bruit. No lymphadenopathy or thyromegaly. LUNGS: Diminished breath sounds with bilateral inspiratory and expiratory wheezing. Percussion note normal. Chest symmetrical. HEART: S1, S2, no S3. No murmur. No cyanosis or clubbing. No ascites. Pulses: Dorsalis pedis and posterior tibial pulses +1 to +2 bilaterally. ABDOMEN: Soft. Nontender. Bowel sounds active. No CVA tenderness. No mass felt. EXTREMITIES: No leg edema. Full range of motion of all extremities, equal. NEUROLOGIC: Alert and oriented. No focal deficit. Cranial nerves II through XII are grossly intact. No headache, no double vision or headache. SKIN: Not dry. Intact. Turgor - normal. LYMPHATIC: No palpable lymph nodes/no lymphedema. MUSCULOSKELETAL: Normal joints with no swelling. Muscle tone is normal. LABS/IMAGING: ABG on room air, pH 7.4, pc02 33.9, p02 69, base excess -4, bicarb 21, TC02 22, 02 sat 94. Sodium 137, potassium 4.6, BUN 9, creatinine 0.8, glucose 182, AST 37, ALT 26. Hemoglobin 9, red blood cells 2.9, hematocrit 29.1, rapid flu A and B are negative. Urine positive 1+ protein, 1+ blood, 1+ mucus. Negative nitrites. Negative leuks. Chest x-ray shows mild right basilar atelectasis and/or consolidation, trace pleural effusion. Mild interstitial prominence could represent bronchiolitis or interstitial edema. ASSESSMENT: 1. ACUTE PNEUMONITIS 2. SHORTNESS OF BREATH 3. COPD 4. SMOKER PLAN: 1. We will admit. 2. Routine telemetry orders. 3. CBC, CMP daily. 4. Start Rocephin 1 gm IV daily. 5. Zithromax 500 mg p.o. daily times three days. 6. Solu-Cortef 125 mg IV q.8hr. 7. Duonebs q.6hr bradly. 8. Oxygen at 1 to 2L as needed. 9. Continue all home medications. 10. Regular diet. 11. Will follow closely. TIME SPENT: More than 70 minutes. MTDD
--- NOTE | 2019-06-17 12:54 | PN ---
DATE OF SERVICE: 06/15/19 SUBJECTIVE: The patient was seen and examined in the emergency room. She had some with having complaint of cough, congestion and shortness of breath with yellowish sputum production with some chills. The patient has been sick for last 10 days. She was started on Z-pack and steroids as an outpatient by my office. She finished that a couple of days ago but hasn't improved. Her appetite has not been that good. She felt lightheaded and dizziness. REVIEW OF SYSTEMS: CONSTITUTIONAL: No night sweats. No fatigue, malaise, lethargy. No fever or chills. HEENT: Eyes: No visual changes. No eye pain. No eye discharge. ENT: No runny nose. No epistaxis. No sinus pain. No sore throat. No odynophagia. No congestion. RESPIRATORY: No cough, no congestion. No hemoptysis. No shortness of breath. CARDIOVASCULAR: No angina symptoms. No CHF symptoms. No atypical chest pain for CAD. No palpitations. No PND. No orthopnea. GASTROINTESTINAL: No abdominal pain. No nausea or vomiting. No diarrhea or constipation. No hematemesis. No hematochezia. GENITOURINARY: No urgency. No frequency. No dysuria. No hematuria. No obstructive symptoms. No discharge. No pain. No significant abnormal bleeding. MUSCULOSKELETAL: No musculoskeletal pain; no joint swelling. NEUROLOGICAL: No headache. No neck pain. No syncope. No seizures. No dizziness. PSYCHIATRIC: Not anxious. No depression. No suicidal thoughts. No homicidal thoughts. SKIN: No rash. No lesions. No wounds. ENDOCRINE: No unexplained weight loss. No weight gain. HEMATOLOGIC/LYMPHATIC: No anemia. No purpura. No petechiae. No prolonged or excessive bleeding. No palpable lymph nodes. PHYSICAL EXAMINATION: GENERAL: The patient is oriented to time, place and person. HEENT: Head normocephalic, atraumatic. Eyes: Extraocular muscles are intact. Pupils are equal, round and reactive to light and accommodation. Ears: No lesions. Nose appeared normal. Throat: No exudate or erythema. NECK: Supple. No JVD, no carotid bruit. No lymphadenopathy or thyromegaly. LUNGS: Decreased breath sounds with mild expiratory wheeze and good air entry. Percussion note normal. Chest symmetrical. HEART: S1, S2, no S3. No murmurs. No cyanosis or clubbing. No ascites. Pulses: Dorsalis pedis and posterior tibial pulses +2 bilaterally. ABDOMEN: Soft. Nontender. Bowel sounds active. No CVA tenderness. No mass felt. EXTREMITIES: No edema. Full range of motion of all extremities, equal. NEUROLOGIC: No focal deficit. Cranial nerves II through XII are grossly intact. No headache, no double vision or headache. SKIN: Somewhat dry. Intact. Turgor - subpar. LYMPHATIC: No palpable lymph nodes/no lymphedema. MUSCULOSKELETAL: Normal joints with no swelling. Muscle tone is normal. LABS: Arterial blood gasses are acceptable. Chest x-ray showed no pneumonia. ASSESSMENT: 1. Acute bronchitis with chronic lung disease PLAN: 1. Given IV antibiotics, steroids and NEBS treatment. 2. The patient has already been given Rocephin TIME SPENT: More than 30 minutes. Plan and coordination of the patient's care discussed in the presence of nurse. ALE
[2019-06-17] MEDS: ATIVAN PO PRN (20:53)
[2019-06-17] MEDS: ULTRAM PO PRN (20:54)
[2019-06-18 04:42] LABS: HEMATOCRIT 26.5 % (37.0-47.0)
[2019-06-18] MEDS: DUONEB NEB SCH ×4 (05:00→20:38)
[2019-06-18] MEDS: SOLU-MEDROL 125 MG IVP SCH ×3 (06:26→21:17)
[2019-06-18] MEDS: PHENERGAN WITH CODEINE 6.25/10 MG/5 ML PO PRN ×3 (06:35→20:22)
[2019-06-18] MEDS: ROCEPHIN 1 GM/50 ML D5W 1 GM/50 ML BAG IV SCH (08:47)
[2019-06-18] MEDS: LOVENOX SUBCUT SCH (08:50)
[2019-06-18] MEDS: ZITHROMAX PO SCH (08:52)
[2019-06-18] MEDS: ZETIA PO SCH (08:52)
[2019-06-18] MEDS: ZEBETA PO SCH (08:52)
[2019-06-18] MEDS: JANUVIA PO SCH (08:53)
[2019-06-18] MEDS: GLUCOPHAGE PO SCH ×2 (08:53→17:10)
[2019-06-18] MEDS: COZAAR PO SCH (08:53)
[2019-06-18] MEDS: ZOCOR PO SCH (08:53)
[2019-06-18] MEDS: ATIVAN PO PRN (21:18)
[2019-06-18] MEDS: ULTRAM PO PRN (21:18)
[2019-06-19] MEDS: DUONEB NEB SCH ×3 (04:50→14:06)
[2019-06-19] MEDS: SOLU-MEDROL 125 MG IVP SCH (05:10)
[2019-06-19] MEDS: KEFLEX PO SCH ×2 (05:10→12:54)
[2019-06-19] MEDS ORDERED: PREDNISONE PO SCH (08:30)
--- NOTE | 2019-06-19 08:31 | PN ---
DATE OF SERVICE: 06/18/19 SUBJECTIVE: The patient was seen and examined today. Her Hgb is 8.4. Practically asymptomatic when it comes to her bronchitis but feeling tired and weak. The patient had interstitial edema. The patient is going to have an echocardiogram done to evaluation LV function otherwise her cardiovascular status is stable. REVIEW OF SYSTEMS: CONSTITUTIONAL: No night sweats. No fatigue, malaise, lethargy. No fever or chills. HEENT: Eyes: No visual changes. No eye pain. No eye discharge. ENT: No runny nose. No epistaxis. No sinus pain. No sore throat. No odynophagia. No congestion. RESPIRATORY: No cough, no congestion. No hemoptysis. No shortness of breath. CARDIOVASCULAR: No angina symptoms. No CHF symptoms. No atypical chest pain for CAD. No palpitations. No PND. No orthopnea. GASTROINTESTINAL: No abdominal pain. No nausea or vomiting. No diarrhea or constipation. No hematemesis. No hematochezia. GENITOURINARY: No urgency. No frequency. No dysuria. No hematuria. No obstructive symptoms. No discharge. No pain. No significant abnormal bleeding. MUSCULOSKELETAL: No musculoskeletal pain; no joint swelling. NEUROLOGICAL: No headache. No neck pain. No syncope. No seizures. No dizziness. PSYCHIATRIC: Not anxious. No depression. No suicidal thoughts. No homicidal thoughts. SKIN: No rash. No lesions. No wounds. ENDOCRINE: No unexplained weight loss. No weight gain. HEMATOLOGIC/LYMPHATIC: No anemia. No purpura. No petechiae. No prolonged or excessive bleeding. No palpable lymph nodes. PHYSICAL EXAMINATION: HEENT: Head normocephalic, atraumatic. Eyes: Extraocular muscles are intact. Pupils are equal, round and reactive to light and accommodation. Ears: No lesions. Nose appeared normal. Throat: No exudate or erythema. NECK: Supple. No JVD, no carotid bruit. No lymphadenopathy or thyromegaly. LUNGS: Decreased breath sounds. Clear to auscultation. Percussion note normal. Chest symmetrical. HEART: S1, S2, no S3. No murmurs. No cyanosis or clubbing. No ascites. Pulses: Dorsalis pedis and posterior tibial pulses +1 to +2 bilaterally. ABDOMEN: Soft. Nontender. Bowel sounds active. No CVA tenderness. No mass felt. EXTREMITIES: No edema. Full range of motion of all extremities, equal. NEUROLOGIC: No focal deficit. Cranial nerves II through XII are grossly intact. No headache, no double vision or headache. SKIN: Not dry. Intact. Turgor - normal. LYMPHATIC: No palpable lymph nodes/no lymphedema. MUSCULOSKELETAL: Normal joints with no swelling. Muscle tone is normal. The patient's son has moved in with her and that is causing a lot of stress. Her recently she is still grieving. ASSESSMENT: 1. Bronchitis seems to have resolved. TIME SPENT: More than 30 minutes. Plan and coordination of the patient's care discussed in the presence of nurse. ALE
[2019-06-19] MEDS: GLUCOPHAGE PO SCH (08:51)
[2019-06-19] MEDS: ZEBETA PO SCH (08:51)
[2019-06-19] MEDS: ZETIA PO SCH (08:52)
[2019-06-19] MEDS: JANUVIA PO SCH (08:52)
[2019-06-19] MEDS: COZAAR PO SCH (08:52)
[2019-06-19] MEDS: ZOCOR PO SCH (08:52)
[2019-06-19] MEDS: ZITHROMAX PO SCH (08:53)
[2019-06-19] MEDS: LOVENOX SUBCUT SCH (08:55)
--- NOTE | 2019-06-19 09:17 | PCM.PROG ---
Attending Provider: ATTENDING PROVIDER: Dr. AMY MADISON This patient is seen with Dinah Low, Nurse Practitioner. DATE OF SERVICE: 06/19/19 SUBJECTIVE: This 64 year old /WHITE F was hospitalized 06/15/19. The patient is lying in bed resting comfortably. She has been up and about eating well. Hemoglobin is low but stable. The patient has iron at home. We have advised colonoscopy. The patient would like to think about it. REVIEW OF SYSTEMS: CONSTITUTIONAL: No night sweats. No fatigue, malaise, lethargy. No fever or chills. HEENT: Eyes: No visual changes. No eye pain. No eye discharge. ENT: No runny nose. No epistaxis. No sinus pain. No odynophagia. No congestion. RESPIRATORY: Cough. No hemoptysis. Shortness of breath. CARDIOVASCULAR: No angina symptoms. No CHF symptoms. No atypical chest pain for CAD. No palpitations. No orthopnea.. GASTROINTESTINAL: No abdominal pain. No nausea or vomiting. No diarrhea or constipation. No hematemesis. No hematochezia. GENITOURINARY: No urgency. No frequency. No dysuria. No hematuria. No obstructive symptoms. No discharge. No pain. No significant abnormal bleeding. MUSCULOSKELETAL: No musculoskeletal pain; no joint swelling. NEUROLOGICAL: Awake, alert, oriented to time, place and person. No headache. No neck pain. No syncope. No seizures. No dizziness. PSYCHIATRIC: Not anxious. No depression. No suicidal thoughts. No homicidal thoughts. SKIN: No rash. No lesions. No wounds. ENDOCRINE: No unexplained weight loss. No weight gain. HEMATOLOGIC/LYMPHATIC: Anemia. No purpura. No petechiae. No prolonged or exce ssive bleeding. No palpable lymph nodes. PHYSICAL EXAMINATION: GENERAL: The patient is awake, alert and oriented, lying/sitting in bed in no distress. VITAL SIGNS: Temperature 98.3 F, Pulse 92, Respiratory Rate 18, BP 140/61, Pulse Ox 96% HEENT: Head normocephalic, atraumatic. Eyes: Extraocular muscles are intact. Pupils are equal, round and reactive to light and accommodation. Ears: No lesions. Nose appeared normal. Throat: No exudate or erythema. NECK: Supple. No JVD, no carotid bruit. No lymphadenopathy or thyromegaly. LUNGS: Diminished breath sounds. Clear to auscultation. Percussion note normal. Chest symmetrical. HEART: S1, S2, no S3. No murmurs. No cyanosis or clubbing. No ascites. Pulses: Dorsalis pedis and posterior tibial pulses +1 to +2 both sides. ABDOMEN: Soft. Non-tender. Bowel sounds active. No CVA tenderness. No mass felt. EXTREMITIES: No edema. Full range of motion of all extremities, equal. NEUROLOGIC: No focal deficit. Cranial nerves II through XII are grossly intact. No headache, no double vision or headache. SKIN: Not dry. Intact. Turgor-normal. LYMPHATIC: No palpable lymph nodes/no lymphedema. MUSCULOSKELETAL: Normal joints with no swelling. Muscle tone is normal. LAB REVIEW: 06/19/19 05:20 06/19/19 05:20 06/19/19 05:20: Sodium 135.7, Potassium 4.49, Chloride 101.3, Carbon Dioxide 25.2, Anion Gap 13.69, BUN 30.5 H, Creatinine 1.08, Estimated GFR (MDRD) 51.00, BUN/Creatinine Ratio 28.24, Glucose 247.2 H, Calcium 9.12, Total Bilirubin 0.34, AST 29.6, ALT 31.2, Alkaline Phosphatase 95.3, Total Protein 6.55, Albumin 3.67, Globulin 2.88, Albumin/Globulin Ratio 1.27 06/19/19 05:20: WBC 9.28, RBC 2.81 L, Hgb 8.3 L, Hct 27.0 L, MCV 96.1, MCH 29.5, MCHC 30.7 L, RDW Coeff of Radha 13.4, Plt Count 244, Immature Gran % (Auto) 1.3, Neut % (Auto) 84.1, Lymph % (Auto) 11.0, Stephens % (Auto) 3.6, Eos % (Auto) 0.0, Baso % (Auto) 0.0, Immature Gran # (Auto) 0.1, Neut # (Auto) 7.8 H, Lymph # (Auto) 1.0, Stephens # (Auto) 0.3 L, Eos # (Auto) 0.0, Baso # (Auto) 0.0 06/18/19 13:00: Iron 25.8 L, TIBC 404, % Saturation 6, Vitamin B12 414 06/18/19 13:00: Ferritin 14.40, Folate 4.14, TSH 0.029 L 06/18/19 13:00: Hemoglobin A1c 6.09 H 06/18/19 13:00: Reticulocyte % (Auto) 2.71, Absolute Retic 0.0818, Retic Hgb Equivalent 30.4 ASSESSMENT: Please see below. 1. Acute bronchitis with pneumonitis. 2. Chronic lung disease. 3. Possibility of CHF. 4. Chronic anemia. 5. Diabetes mellitus. PLAN: 1. Keflex 500 mg t.i.d. for 7 days. 2. D/C home today. 3. Advised to have colonoscopy. 4. Prednisone 10 mg b.i.d. times three days. 5. Echocardiogram before discharge. 6. D/C Solu-Medrol. 7. Phenergan with codeine. 8. Followup in the office on the June 30, 2019. 9. Three-step oxygen. Plan and coordination of the patient's care discussed in the presence of Hand Alterations Tailor and nurse. CONDITION: Stable SCRIBED BY: PO CORONA Audit Machine Operator scribed while in presence of service performed by Dr. Madison/Dinah Low APRN on 06/19/19 ([id number])
--- NOTE | 2019-06-19 13:28 | CM.DICTOOL ---
ADMISSION: 06/15/19 12:39 DISCHARGE: JUNE 19, 2019 DATE OF SERVICE: 06/19/19 FINAL DIAGNOSIS PNEUMONIA SHORTNESS OF BREATH DIABETES MELLITUS, TYPE 2 HYPERTENSION DYSLIPIDEMIA ANEMIA SMOKER VITAMIN D DEFICIENCY VITAMIN B DEFICIENCY CHRONIC KIDNEY DISEASE, STAGE 2 FATTY LIVER LAST VITALS Temp Pulse Resp BP Pulse Ox 98.3 F 92 H 18 140/61 95 06/19/19 05:24 06/19/19 05:24 06/19/19 05:24 06/19/19 05:24 06/19/19 10:00 TAKE THESE MEDICATIONS AT HOME Bisoprolol Fumarate (Zebeta) 10 mg PO DAILY [facility] Last Admin: 06/19/19 08:51 Dose: 10 mg Documented by: Ezetimibe (Zetia) 10 mg PO DAILY [facility] Last Admin: 06/19/19 08:52 Dose: 10 mg Documented by: Lorazepam (Ativan) 0.5 - 1 mg PO BEDTIME PRN PRN Reason: Restlessness Last Admin: 06/18/19 21:18 Dose: 1 mg Documented by: Losartan Potassium (Cozaar) 25 mg PO DAILY [facility] Last Admin: 06/19/19 08:52 Dose: 25 mg Documented by: Metformin HCl (Glucophage) 1,000 mg PO BIDWM [facility] Last Admin: 06/19/19 08:51 Dose: 1,000 mg Documented by: Simvastatin (Zocor) 40 mg PO DAILY [facility] Last Admin: 06/19/19 08:52 Dose: 40 mg Documented by: Sitagliptin Phosphate (Januvia) 100 mg PO DAILY [facility] Last Admin: 06/19/19 08:52 Dose: 100 mg Documented by: Tramadol HCl (Ultram) 50 mg PO BEDTIME PRN PRN Reason: Restlessness Last Admin: 06/18/19 21:18 Dose: 50 mg Documented by: PRO AIR HFA 2 INHALATIONS QID PRN LAST ADMIN: ALLERGIES Penicillins Adverse Reaction (Verified 06/15/19 10:25) DISCONTINUED MEDICATIONS NEW PRESCRIPTIONS: LOSARTAN 25 MG DAILY KEFLEX 500 MG TID FOR 7 DAYS PREDNISONE 10 MG BID FOR 3 DAYS, THEN DAILY FOR 2 DAYS PHENERGAN WITH CODEINE 10 MG EVERY 6 HOURS PRN SMOKING: ENCOURAGED TO STOP SMOKING DISEASE SPECIFIC EDUCATION: SMOKING CESSATION APPOINTMENTS USE OF STEROIDS AND RISK OF GI IRRITATION, AVASCULAR NECROSIS ANEMIA LAB REVIEW: 06/19/19 05:20 06/19/19 05:20 06/19/19 05:20: Sodium 135.7, Potassium 4.49, Chloride 101.3, Carbon Dioxide 25.2, Anion Gap 13.69, BUN 30.5 H, Creatinine 1.08, Estimated GFR (MDRD) 51.00, BUN/Creatinine Ratio 28.24, Glucose 247.2 H, Calcium 9.12, Total Bilirubin 0.34, AST 29.6, ALT 31.2, Alkaline Phosphatase 95.3, Total Protein 6.55, Albumin 3.67, Globulin 2.88, Albumin/Globulin Ratio 1.27 06/19/19 05:20: WBC 9.28, RBC 2.81 L, Hgb 8.3 L, Hct 27.0 L, MCV 96.1, MCH 29.5, MCHC 30.7 L, RDW Coeff of Radha 13.4, Plt Count 244, Immature Gran % (Auto) 1.3, Neut % (Auto) 84.1, Lymph % (Auto) 11.0, [place] % (Auto) 3.6, Eos % (Auto) 0.0, Baso % (Auto) 0.0, Immature Gran # (Auto) 0.1, Neut # (Auto) 7.8 H, Lymph # (Auto) 1.0, [place] # (Auto) 0.3 L, Eos # (Auto) 0.0, Baso # (Auto) 0.0 06/18/19 13:00: Iron 25.8 L, TIBC 404, % Saturation 6, Vitamin B12 414 06/18/19 13:00: Ferritin 14.40, Folate 4.14, TSH 0.029 L 06/18/19 13:00: Hemoglobin A1c 6.09 H 06/18/19 13:00: Reticulocyte % (Auto) 2.71, Absolute Retic 0.0818, Retic Hgb Equivalent 30.4 PLAN: DISCHARGE HOME DIET: CONSISTENT CARBOHYDRATES LIQUIDS TOLERATED ACTIVITY: GRADUALLY RESUME TOLERATED AN APPOINTMENT IS SCHEDULED WITH DR. MADISON/JOVANNY SALGADO APRN ON AT 1 PM AN APPOINTMENT IS SCHEDULED WITH DR. HODGES/JOSETTE DONATO APRN ON AT 1245 CONTINUE TO CHECK YOUR BLOOD SUGARS AT HOME AT LEAST 3-4 TIMES DAILY CODE STATUS: FULL CODE MS. JONES IS ALERT AND ORIENTED X 4. MS. JONES LIVES AT HOME WITH HER GRANDSON. SHE IS AWARE AND AGREEABLE WITH PLANS TO DISCHARGE HOME TODAY. MS. JONES IS IN DEPENDENT WITH ACTIVITIES OF DAILY LIVING. SHE IS AMBULATORY IN THE ROOM WITHOUT STAFF ASSISTANCE. A 3 STEP OXIMETRY DOES NOT REVEAL THE NEED FOR HOME OXYGEN. MS. JONES IS CONTINENT OF BLADDER AND BOWEL. SHE FEEDS HERSELF AND MEAL INTAKES HAVE RANGED FROM 10-100%. SKIN IS INTACT. HYDRATION STATUS HAS IMPROVED. SHE WILL BE FOLLOWED IN THE OFFICE AT HER REGULAR APPOINTMENT ON . MD JOVANNY LIU, SENIOR PRIVATE CLIENT ADVISOR
[2019-06-19 14:33] VITALS: BP 138/65; TEMP 98
--- NOTE | 2019-06-19 14:46 | PN ---
DATE OF SERVICE: 06/19/19 SUBJECTIVE: The patient was seen and examined with the Nurse Practitioner. The patient's condition has improved. She is going to have an echocardiogram before discharge. Bronchitis has resolved. Anemia we will refer her for colonoscopy. The patient has declined any workup in a way of hematological referral in the past. She will discharged on antibiotics. CONDITION: Stable. TIME SPENT: More than 30 minutes. Plan and coordination of the patient's care discussed in the presence of nurse. ALE
--- NOTE | 2019-06-19 14:46 | PN ---
06/15/19: Level 5 06/16/19: Intermediate 06/17/19: Intermediate 06/18/19: Intermediate 06/19/19: D as in discharge MTDD
--- NOTE | 2019-06-23 11:44 | DS ---
DATE OF SERVICE: 06/19/19 FINAL DIAGNOSIS: 1. PNEUMONIA 2. SHORTNESS OF BREATH 3. DIABETES MELLITUS, TYPE 2 4. HYPERTENSION 5. DYSLIPIDEMIA 6. ANEMIA 7. SMOKER 8. VITAMIN D DEFICIENCY 9. VITAMIN B DEFICIENCY 10.CHRONIC KIDNEY DISEASE, STAGE 2 11.FATTY LIVER LAST VITALS: Temp Pulse Resp BP Pulse Ox 98.3 F 92 H 18 140/61 95 06/19/19 05:24 06/19/19 05:24 06/19/19 05:24 06/19/19 05:24 06/19/19 10:00 DISCHARGE INSTRUCTIONS: DISCHARGE HOME. AN APPOINTMENT IS SCHEDULED WITH DR. ORTIZ/JOVANNY SALGADO APRN ON AT 1 PM AN APPOINTMENT IS SCHEDULED WITH DR. HODGES/JOSETTE DONATO APRN ON AT 1245. CONTINUE TO CHECK YOUR BLOOD SUGARS AT HOME AT LEAST 3-4 TIMES DAILY. CODE STATUS: FULL CODE TAKE THESE MEDICATIONS AT HOME: Bisoprolol Fumarate (Zebeta) 10 mg PO DAILY WILL Ezetimibe (Zetia) 10 mg PO DAILY WILL Lorazepam (Ativan) 0.5 - 1 mg PO BEDTIME PRN Losartan Potassium (Cozaar) 25 mg PO DAILY WILL Metformin HCl (Glucophage) 1,000 mg PO BIDWM WILL Simvastatin (Zocor) 40 mg PO DAILY WILL Sitagliptin Phosphate (Januvia) 100 mg PO DAILY WILL Tramadol HCl (Ultram) 50 mg PO BEDTIME PRN PRO AIR HFA 2 INHALATIONS QID PRN ALLERGIES: Penicillins Adverse Reaction (Verified 06/15/19 10:25) NEW PRESCRIPTIONS: LOSARTAN 25 MG DAILY KEFLEX 500 MG TID FOR 7 DAYS PREDNISONE 10 MG BID FOR 3 DAYS, THEN DAILY FOR 2 DAYS PHENERGAN WITH CODEINE 10 MG EVERY 6 HOURS PRN SMOKING: ENCOURAGED TO STOP SMOKING DISEASE SPECIFIC EDUCATION: SMOKING CESSATION APPOINTMENTS USE OF STEROIDS AND RISK OF GI IRRITATION, AVASCULAR NECROSIS ANEMIA LAB REVIEW: 06/19/19 05:20 06/19/19 05:20 06/19/19 05:20: Sodium 135.7, Potassium 4.49, Chloride 101.3, Carbon Dioxide 25.2, Anion Gap 13.69, BUN 30.5 H, Creatinine 1.08, Estimated GFR (MDRD) 51.00, BUN/Creatinine Ratio 28.24, Glucose 247.2 H, Calcium 9.12, Total Bilirubin 0.34, AST 29.6, ALT 31.2, Alkaline Phosphatase 95.3, Total Protein 6.55, Albumin 3.67, Globulin 2.88, Albumin/Globulin Ratio 1.27 06/19/19 05:20: WBC 9.28, RBC 2.81 L, Hgb 8.3 L, Hct 27.0 L, MCV 96.1, MCH 29.5, MCHC 30.7 L, RDW Coeff of Radha 13.4, Plt Count 244, Immature Gran % (Auto) 1.3, Neut % (Auto) 84.1, Lymph % (Auto) 11.0, [place] % (Auto) 3.6, Eos % (Auto) 0.0, Baso % (Auto) 0.0, Immature Gran # (Auto) 0.1, Neut # (Auto) 7.8 H, Lymph # (Auto) 1.0, [place] # (Auto) 0.3 L, Eos # (Auto) 0.0, Baso # (Auto) 0.0 06/18/19 13:00: Iron 25.8 L, TIBC 404, % Saturation 6, Vitamin B12 414 06/18/19 13:00: Ferritin 14.40, Folate 4.14, TSH 0.029 L 06/18/19 13:00: Hemoglobin A1c 6.09 H 06/18/19 13:00: Reticulocyte % (Auto) 2.71, Absolute Retic 0.0818, Retic Hgb Equivalent 30.4 DIET: CONSISTENT CARBOHYDRATES LIQUIDS TOLERATED ACTIVITY: GRADUALLY RESUME TOLERATED HOSPITAL COURSE: This is a 64 year old white female who presented to the emergency room complaining of shortness of breath and chest x-ray revealed that she had right lower lobe infiltrate. She has a history of COPD. She is a heavy smoker. Chest x-ray also states that she had questionable possible interstitial edema. She was admitted and given Lasix 20mg IV and started on Rocephin 1 gram IV daily along with Solu-Medrol 125mg IV Q 8 hours. Required oxygen at 1-2 liters for the first two days. Blood pressure was elevated. We did add Losartan 25mg daily. The patient has a history of anemia. Hgb was 9.3 on admission. She has chronic anemia for which she doesn't take her iron due to the side effects. She did receive some IV fluids on admission. Hgb went down to 8.5 likely due to hemodilution. She has previous refused a colonoscopy in the past. Again has a history of chronic anemia. We have scheduled her an appointment with Dr. Hodges for a colonoscopy. We did an anemia panel and iron was slightly iron, other TIBC was normal. She has an appointment with Dr. Hodges on July 23. She was instructed the importance of keeping this appointment. We did discuss smoking cessation. Dr. Ortiz did a 2D Echo which was normal given the results of possible edema. Over the course of the past several days she significantly improved. Shortness of breath improved. She passed her three step O2 test. We will followup with her in the office next week. She will be discharged home on Keflex 500mg PO TID for the next 7 days along with Prednisone 10mg BID for the three days and then daily for 2 days. She has also been given Phenergan with Codeine cough syrup for her cough. TIME SPENT: More than 60 minutes. MTDD
--- NOTE | 2019-06-23 14:09 | ECHO2D ---
Date of Exam: 06/19/19 Ordering Physician: DR. AMY MADIOSN Room #: 119 Reason for Echo: SOB, COPD, SMOKER, CHEST XRAY--INTERSTITIAL EDEMA M-Mode Normal Adult Results LV Dimensions Normal Adult Results AoV Opening excursions >1.6 >1.6 LVEDD-base- 3.5-5.8 4.5 Ao root dimensions 2.0-3.7 3.1 LVESD-base- 3.1-4.6 L. Atrium dimensions 1.9-3.8 4.2 Post. Wall thickness 0.8-1.1 1.1 IV septum (thickness) 0.7-1.2 1.2 Post. Wall excursion 0.72-1.3 NORMAL Septal motion 0.6 Systolic motion R. Ventricular cavity 1.5-2.0 NORMAL LVEF 60% 45-50% Paradoxical septal wall motion NORMAL 2-D : 2-D M Mode Echocardiogram was performed using apical four chamber and left parasternal long and short axis views. Mitral, tricuspid and aortic valves appear to be normal. Contractility of the left ventricle seems to be normal, so is the cavity size. ENLARGED LEFT ATRIAL CAVITY. Aortic root appears to be normal. There is no pericardial effusion. There is no thrombus noted in the left ventricle or left atrial cavity. No mitral valve prolapse noted. HYPOKINETIC SEPTUM. M-MODE: MV: NORMAL AV: NORMAL TV: NORMAL PV: CHAMBER SIZE: ENLARGED LEFT ATRIAL CAVITY WALL MOTION: BORDERLINE HYPOKINETIC SEPTAL WALL PERICARDIUM: NORMAL INTERPRETATION: 1. BORDERLINE HYPOKINETIC SEPTAL WALL (BBB) 2. LEFT VENTRICULAR EJECTION FRACTION 45 TO 50% 3. BORDERLINE LEFT VENTRICULAR HYPERTROPHY 4. ENLARGED LEFT ATRIAL CAVITY 5. VALVES--NORMAL MTDD
== END 2019-06-19 14:35 | disposition home or self-care (01) | DRG 195 ==
LOC: ED 10:11 → MEDSURG B 12:39
PROVIDERS: ADMIT Internal Medicine; ATTEND Internal Medicine
DX: E53.9 Vitamin B deficiency, unspecified; I50.9 Heart failure, unspecified; E55.9 Vitamin D deficiency, unspecified; J44.9 Chronic obstructive pulmonary disease, unspecified; I10 Essential (primary) hypertension; R06.00 Dyspnea, unspecified; R06.2 Wheezing; R05 Cough; R07.89 Other chest pain; E78.5 Hyperlipidemia, unspecified; J18.9 Pneumonia, unspecified organism; D64.9 Anemia, unspecified; R09.81 Nasal congestion; N18.2 Chronic kidney disease, stage 2 (mild); E11.9 Type 2 diabetes mellitus without complications; J20.9 Acute bronchitis, unspecified

== ENCOUNTER 2025-01-24 04:29 | Inpatient (IN) ==
[2025-01-24] MEDS: SOLU-MEDROL 125 MG IVP ONE (05:02)
--- NOTE | 2025-01-24 05:03 | ED.PDOC ---
General [facility] ED Provider: Dr. ALEXANDRA STARKEY MD Chief Complaint: Shortness of Air Stated Complaint: Patient presents to ER from home accompanied by her friend complaining of worsening shortness of breath. States that she was diagnosed with COVID-19 approximately 1 week ago. Reports that her PCP called in oral azithromycin and prednisone on and told her that if symptoms continue to worsen to present to nearest ER. Says that she started struggling to breathe overnight. Has a history of asthma and COPD and is a current smoker. Initially said that she had fever and chills last week, but now denies any other symptoms except shortness of breath. No other complaints at this time. Time Seen by Provider: 01/24/25 04:51 Mode of Arrival: Walk-In Information Source: Patient and Other Exam Limitations: No limitations Nursing and Triage Documentation Reviewed and Agree: Yes Opioid Naive vs. Tolerant What is Opioid Naive?: *Opioid Naive implies the patient is not already taking opioids or not chronically receiving opioids on a daily basis. *PRN dosing is not "usually" associated with tolerance. *Patients are at higher risk of over-sedation and aspiration. What is Opioid Tolerant?: *Opioid Tolerance implies less than the expected response to an opioid. *Acquired tolerance is defined by the patient taking 60mg of oral morphine daily (or equianalgesic dose of another opioid) for 1 week or more. *Often associated with chronic pain. *May take more than usual dose to achieve desired pain control. Review of Systems Review Of Systems Constitutional: Reports No symptoms All Other Systems: Reviewed and Negative [facility] Medical History History of severe acute respiratory syndrome coronavirus 2 (SARS-CoV-2) disease Z86.16 - Personal history of COVID-19 (ICD-10) Diabetes E11.9 - Type 2 diabetes mellitus without complications (ICD-10) Pneumonia J18.9 - Pneumonia, unspecified organism (ICD-10) Family History Mother Diabetes FATHER Stroke SISTER Myocardial infarction Colon cancer Social History Smoking and tobacco status: Current every day smoker Tobacco type: cigarettes Tobacco: How many years used: 45 (1 PACK PER DAY) Second hand smoke exposure: Yes Alcohol intake: never Substance use type: does not use Special kyle needs: No Agree to transfusion: Yes Adopted: No Caregiver/support person: No Foster care: No Household members: none Housing: house Marital status: W / Number of children: 3 service: No MCFP: No History of recent travel: No Do you think of yourself as: straight/heterosexual Current gender identity: female Seatbelt use: always Helmet use: No Drives intoxicated or rides with intoxicated local combination truck driver: No Water heater temperature set < 120 degrees: Yes Working smoke detector in home: Yes Fire extinguisher in home: Yes Carbon monoxide detector in home: Yes Surgical History Hx of tonsillectomy Z98.89 - Other specified postprocedural states (ICD-10) Female Reproductive History Menstrual Hx Hysterectomy: No Hx Tubal Ligation: Yes Physical Exam Physical Exam Appearance: Reports Ill-appearing, No pain distress, Well-nourished and Obese Ill-appearing: Moderate Pain Distress: None Eyes: Reports SILVIA and EOMI ENT: Reports Ears normal and Nose normal Neck: Supple Respiratory: Reports Airway patent, Breath sounds equal, Respirations nonlabored and Other (Bilateral coarse breath sounds) Cardiovascular: Reports RRR, Pulses normal, No rub and No murmur GI/: Reports Soft and Nontender Musculoskeletal: Reports Normal strength and ROM intact Skin: Reports Warm, Dry and Normal color Neurological: Reports Sensation intact, Motor intact, Alert and Oriented Psychiatric: Reports Affect appropriate and Mood appropriate Interpretation EKG Interpretation EKG Interpretation By: ED Physician Time of EKG #1: 05:45 Rate: Normal Rhythm: Sinus Ectopy: None [place]: [place] ST Segment: Normal Interpretation: NSR, LBBB interpreted by me Course Course 01/24/25 05:12 01/24/25 05:12 Orders, Labs, Meds: Lab Review 01/24/25 01/24/25 01/24/25 04:55 05:12 05:40 WBC 9.15 RBC 2.40 L Hgb 8.3 L Hct 27.6 L MCV 115.0 H MCH 34.6 H MCHC 30.1 L RDW Coeff of Radha 15.4 H Plt Count 207 Immature Gran % (Auto) 0.7 Neut % (Auto) 82.3 H Lymph % (Auto) 10.7 [place] % (Auto) 6.1 Eos % (Auto) 0.1 Baso % (Auto) 0.1 Neut # (Auto) 7.5 H Lymph # (Auto) 1.0 [place] # (Auto) 0.6 Eos # (Auto) 0.0 Baso # (Auto) 0.0 Immature Gran # (Auto) 0.1 PT 11.6 H INR 1.13 Puncture Site Rr Base Excess -9.6 L O2 Saturation 99.5 H ABG pH 7.36 ABG pCO2 28.0 L ABG pO2 178.0 H ABG HCO3 15.8 L ABG Total CO2 16.7 L [place] Test Pos Hemoglobin 1.9 H Oxyhemoglobin 94.4 L Carboxyhemoglobin 2.7 H Total Hemoglobin 6.9 L O2 Delivery Device Bipap FiO2 % 50.0 Sodium 139.4 Potassium 5.05 Chloride 113.0 H Carbon Dioxide 13.0 L Anion Gap 18.45 BUN 28.0 H Creatinine 1.52 H Estimated GFR (MDRD) 34.00 BUN/Creatinine Ratio 18.42 Glucose 301.7 H Lactic Acid 1.91 Calcium 8.42 Magnesium 2.19 Total Bilirubin 0.99 AST 36.1 H ALT 17.7 Alkaline Phosphatase 81.9 Troponin I 0.024 NT-Pro-B Natriuret Pep 6080 H Total Protein 6.96 Albumin 3.40 L Globulin 3.56 Albumin/Globulin Ratio 0.95 Procalcitonin 14.73 H D-Dimer 1721.67 H Urine Color Urine Clarity Urine pH Ur Specific [place] Urine Protein Urine Glucose (UA) Urine Ketones Urine Blood Urine Nitrite Urine Bilirubin Urine Urobilinogen Ur Leukocyte Esterase Urine Microscopic WBC Ur Squamous Epith Cells Urine Bacteria Urine Opiates Screen Ur Oxycodone Screen Urine Methadone Screen Ur Barbiturates Screen U Tricyclic Antidepress Ur Phencyclidine Scrn Ur Amphetamine Screen U Methamphetamines Scrn U Benzodiazepines Scrn Urine Cocaine Screen U Cannabinoids Screen Acetone, Qual Trace Influ A Molecular Assay Negative by naat Influ B Molecular Assay Negative by naat RSV Antigen Negative by naat SARS CoV-2 RNA Rapid TR[place]IDAD Positive H 01/24/25 01/24/25 07:55 07:58 WBC RBC Hgb Hct MCV MCH MCHC RDW Coeff of Radha Plt Count Immature Gran % (Auto) Neut % (Auto) Lymph % (Auto) [place] % (Auto) Eos % (Auto) Baso % (Auto) Neut # (Auto) Lymph # (Auto) [place] # (Auto) Eos # (Auto) Baso # (Auto) Immature Gran # (Auto) PT INR Puncture Site Rrad Base Excess -9.6 L O2 Saturation 93.1 L ABG pH 7.32 L ABG pCO2 32.0 L ABG pO2 73.0 L ABG HCO3 16.5 L ABG Total CO2 17.5 L [place] Test Pos Hemoglobin 1.3 Oxyhemoglobin 93.6 L Carboxyhemoglobin 2.9 H Total Hemoglobin 8.0 L O2 Delivery Device Bipap FiO2 % 21.0 Sodium Potassium Chloride Carbon Dioxide Anion Gap BUN Creatinine Estimated GFR (MDRD) BUN/Creatinine Ratio Glucose Lactic Acid Calcium Magnesium Total Bilirubin AST ALT Alkaline Phosphatase Troponin I NT-Pro-B Natriuret Pep Total Protein Albumin Globulin Albumin/Globulin Ratio Procalcitonin D-Dimer Urine Color Yellow Urine Clarity Clear Urine pH 5.0 Ur Specific [place] 1.020 Urine Protein 3+ H Urine Glucose (UA) Negative Urine Ketones Negative Urine Blood 1+ H Urine Nitrite Positive H Urine Bilirubin Negative Urine Urobilinogen 0.2 Ur Leukocyte Esterase Trace H Urine Microscopic WBC 2-5 Ur Squamous Epith Cells 2-5 Urine Bacteria 1+ Urine Opiates Screen Negative Ur Oxycodone Screen Negative Urine Methadone Screen Negative Ur Barbiturates Screen Negative U Tricyclic Antidepress Negative Ur Phencyclidine Scrn Negative Ur Amphetamine Screen Negative U Methamphetamines Scrn Negative U Benzodiazepines Scrn Positive H Urine Cocaine Screen Negative U Cannabinoids Screen Negative Acetone, Qual Influ A Molecular Assay Influ B Molecular Assay RSV Antigen SARS CoV-2 RNA Rapid [place] Orders Category Date Time Status ADMIT PATIENT [facility]PAT[facility] ADMISSION 01/24/25 09:35 Active ABG DRAW REQUEST Stat CARDIO 01/24/25 04:52 Completed ABG DRAW REQUEST Stat CARDIO 01/24/25 07:48 Completed BIPAP Routine CARDIO 01/24/25 04:51 Completed EKG-(ED ONLY) Stat CARDIO 01/24/25 05:12 Completed NEBULIZER TREATMENT Stat CARDIO 01/24/25 04:54 Completed NPO REMINDER: IMAGING ONCE CARE 01/24/25 06:06 Completed TELEMETRY MONITORING TELE CARE 01/24/25 09:36 Active ACCUCHECK (ED) [ED ACCUCHECK ASSESSMENT] .ONCE EMERGENCY 01/24/25 06:12 Active ACCUCHECK (ED) [ED ACCUCHECK ASSESSMENT] .ONCE EMERGENCY 01/24/25 07:49 Active ED APPLY O2 .ONCE EMERGENCY 01/24/25 04:52 Active ED TIRE SERVICE SUPERVISOR APPLIED .ONCE EMERGENCY 01/24/25 04:52 Active ED IV/MEDIPORT/POWERPORT .ONCE EMERGENCY 01/24/25 04:52 Active ED VITAL SIGNS .ONCE EMERGENCY 01/24/25 04:52 Active ABG COOX Stat LAB 01/24/25 04:55 Completed ABG COOX Stat LAB 01/24/25 07:58 Completed ACETONE, QUALITATIVE Stat LAB 01/24/25 05:12 Completed BLOOD CULTURE (ED ONLY) Stat LAB 01/24/25 05:35 Received CBC W/ AUTO DIFF Stat LAB 01/24/25 05:12 Completed COMPREHENSIVE METABOLIC PANEL Stat LAB 01/24/25 05:12 Completed D-DIMER Stat LAB 01/24/25 05:12 Completed DRUG SCREEN, URINE, RAPID Stat LAB 01/24/25 07:55 Completed FLU A/B MOLECULAR Stat LAB 01/24/25 05:40 Completed LACTIC ACID Stat LAB 01/24/25 05:12 Completed MAGNESIUM Stat LAB 01/24/25 05:12 Completed NT-PROBNP(ED) Stat LAB 01/24/25 05:12 Completed PROCALCITONIN Stat LAB 01/24/25 05:12 Completed PT WITH INR Stat LAB 01/24/25 05:12 Completed RSV Stat LAB 01/24/25 05:40 Completed SARS COV-2 RNA RAPID [place] Stat LAB 01/24/25 05:40 Completed TROPONIN I Stat LAB 01/24/25 05:12 Completed URINALYSIS C & S IF INDICATED Stat LAB 01/24/25 07:55 Completed URINE CULTURE Stat LAB 01/24/25 08:12 Received 0.9 % Sodium Chloride [Saline Flush] Meds 01/24/25 04:51 Active 1 syr IVF PRN PRN Calcium Chloride Syringe [Calcium Chloride 10%] Meds 01/24/25 05:59 Discontinued 1,000 mg IVP ONCE STA Cefepime 2 gm/D5w [Maxipime 2 gm/50 ml D5w] Meds 01/24/25 06:40 Discontinued 2 gm in 50 ml IV ONCE Enoxaparin Sodium [Lovenox] Meds 01/24/25 07:21 Discontinued 40 mg SUBCUT ONCE STA Insulin Lispro [Humalog (10 ml Vial)] Meds 01/24/25 05:46 Discontinued 5 unit SUBCUT ONCE STA Iodixanol [Visipaque 320 mg/ml 100Ml] Meds 01/24/25 06:15 Discontinued 100 ml IVP ONCE ONE Ipratropium/Albuterol Neb [Duoneb] Meds 01/24/25 04:51 Discontinued 3 ml NEB ONCE STA Methylprednisolone Sod Succ/Pf [Solu-Medrol 125 mg] Meds 01/24/25 04:51 Discontinued 125 mg IVP ONCE ONE Sodium Chloride 0.9% [Sodium Chloride] 500 ml Meds 01/24/25 05:55 Discontinued IV BOLUS Vancomycin/Water For Inj (Peg) [Vancomycin 1.5 Gram/300 Meds 01/24/25 06:41 Discontinued ml Premix] 1.5 gm in 300 ml IV ONCE CHEST, 1V AP ONLY Stat RADS 01/24/25 04:51 Completed CTA CHEST PE PROTOCOL Stat RADS 01/24/25 06:06 Completed Medications Generic Name Dose Route Start Last Admin Trade Name Freq PRN Reason Stop Dose Admin Acetaminophen 650 mg 01/24/25 11:24 Acetaminophen 325 Mg Tablet PO Q4H PRN Mild Pain Benzonatate 100 mg 01/24/25 11:24 Benzonatate 100 Mg Capsule PO TID PRN Cough Bisoprolol Fumarate 10 mg 01/24/25 11:30 Bisoprolol Fumarate 5 Mg Tablet PO DAILY [facility] Brimonidine Tartrate 1 drop 01/24/25 11:30 Brimonidine Tartrate 0.2% 5 Ml Btl RIGHTEYE BID [facility] Dexamethasone Sodium Phosphate 6 mg 01/25/25 09:00 Dexamethasone Sod Phos 10 Mg/Ml Inj IVP DAILY [facility] Dextrose 50 ml 01/24/25 11:24 Dextrose 50 % In Water 50 Ml Disp.Syrin IVP ONCE PRN Unconscious Hypoglycemia Protocol Ezetimibe 10 mg 01/24/25 17:00 Ezetimibe 10 Mg Tablet PO QPM [facility] Enoxaparin Sodium 40 mg 01/25/25 09:00 Enoxaparin Sodium 40 Mg/0.4 Ml Syr SUBCUT DAILY [facility] Escitalopram Oxalate 0 mg 01/24/25 11:30 Escitalopram Oxalate 10 Mg Tablet PO .COMPLEX WILL Fenofibrate 160 mg 01/24/25 12:00 Fenofibrate 160 Mg Tablet PO DAILY WILL Ferrous Sulfate 324 mg 01/24/25 12:00 Ferrous Sulfate 324 Mg Tablet. PO DAILY WILL Folic Acid 1 mg 01/24/25 11:30 Folic Acid 1 Mg Tablet PO DAILY [facility] Guaifenesin/Dextromethorphan 5 ml 01/24/25 11:24 Guaifenesin/Dextromethorphan 200/20 Mg/10 Ml Cup PO Q4H PRN Cough VANCOMYCIN/WATER FOR INJ (PEG) 1 gm in 200 mls @ 200 mls/hr 01/25/25 09:00 Vancomycin 1 Gram/200 Ml Premix IV 01/28/25 08:59 DAILY [facility] CEFEPIME 2 GM/D5W 2 gm in 50 mls @ 100 mls/hr 01/24/25 21:00 Maxipime 2 Gm/50 Ml D5w IV 01/27/25 20:59 Q12HR [facility] Insulin Human Lispro 0 unit 01/24/25 11:24 Insulin Lispro 100 Unit/Ml (10 Ml Vial) SUBCUT PRN PRN Hyperglycemia Protocol Latanoprost 1 drop 01/24/25 17:00 Latanoprost 2.5 Ml Opth Regi EACHEYE QPM [facility] Lorazepam 0.5 mg 01/24/25 11:26 Lorazepam 0.5 Mg Tablet PO Q6H PRN Anxiety Ondansetron HCl 4 mg 01/24/25 11:24 Ondansetron Hcl/Pf 4 Mg/2 Ml Sdv IVP Q6H PRN Nausea / Vomiting Pantoprazole Sodium 40 mg 01/24/25 11:30 Pantoprazole Sodium 40 Mg Tablet. PO QDAC2 [facility] Simvastatin 40 mg 01/24/25 17:00 Simvastatin 40 Mg Tablet PO QPM [facility] Sodium Chloride 1 syr 01/24/25 04:51 0.9% Sodium Chloride 10 Ml Disp.Syrin IVF PRN PRN To flush IV Timolol Maleate 1 drop 01/24/25 11:30 Timolol Maleate 0.5% 5 Ml Opth Regi EACHEYE BID WILL Tramadol HCl 50 mg 01/24/25 11:26 Tramadol Hcl 50 Mg Tablet PO Q6H PRN MODERATE PAIN Discontinued Medications Generic Name Dose Route Start Last Admin Trade Name Freq PRN Reason Stop Dose Admin Albuterol/Ipratropium 3 ml 01/24/25 04:51 01/24/25 05:25 Ipratropium/Albuterol Vial.Neb NEB 01/24/25 04:52 3 ml ONCE STA Administration Calcium Chloride 1,000 mg 01/24/25 05:59 01/24/25 06:12 Calcium Chloride 1000 Mg/10 Ml Syringe IVP 01/24/25 06:00 1,000 mg ONCE STA Administration Enoxaparin Sodium 40 mg 01/24/25 07:21 01/24/25 07:26 Enoxaparin Sodium 40 Mg/0.4 Ml Syr SUBCUT 01/24/25 07:22 40 mg ONCE STA Administration Sodium Chloride 500 mls @ 250 mls/hr 01/24/25 05:55 01/24/25 10:01 Sodium Chloride IV 01/24/25 07:54 Infused BOLUS ONE Infusion CEFEPIME 2 GM/D5W 2 gm in 50 mls @ 100 mls/hr 01/24/25 06:40 01/24/25 06:46 Maxipime 2 Gm/50 Ml D5w IV 01/24/25 07:09 100 mls/hr ONCE ONE Administration VANCOMYCIN/WATER FOR INJ (PEG) 1.5 gm in 300 mls @ 200 mls/hr 01/24/25 06:41 01/24/25 08:38 Vancomycin 1.5 Gram/300 Ml Premix IV 01/24/25 08:10 200 mls/hr ONCE ONE Administration Insulin Human Lispro 5 unit 01/24/25 05:46 01/24/25 06:05 Insulin Lispro 100 Unit/Ml (10 Ml Vial) SUBCUT 01/24/25 05:47 5 unit ONCE STA Administration Iodixanol 100 ml 01/24/25 06:15 01/24/25 06:26 Iodixanol 320 Mg/Ml 100ml IVP 01/24/25 06:16 100 ml ONCE ONE Administration Methylprednisolone Sodium Succinate 125 mg 01/24/25 04:51 01/24/25 05:02 Methylprednisolone Sod Succ/Pf 125 Mg/2 Ml Vial IVP 01/24/25 04:52 125 mg ONCE ONE Administration [address] [id number] Diagnostic Imaging Diagnostic Imaging Report : [id number] Signed Patient: SACHA JONES Acct:[id number] Medical Record: [id number] : 1955 Loc: ED Room/Bed: Age/Sex: 69 / F ADM Status: REG ER Date of Service: 01/24/25 Ordering Physician: ALEXANDRA STARKEY MD Procedure(s): CHEST, 1V AP ONLY Report Number(s): [id number] Accession Number(s): [id number] cc: ALEXANDRA STARKEY MD; JOVANNY SALGADO APRN EXAM: SINGLE-VIEW CHEST. HISTORY: Shortness of breath COMPARISON: Two-view chest 01/31/2024 FINDINGS: / impression Patient is rotated to the left. The cardiac silhouette is enlarged. The lungs are hyperinflated . There are trace bilateral pleural effusions with right basilar opacity. Dictated By: JAIME BELTRÁN Signed By: JAIME BELTRÁN Dictated Date/Time: 01/24/25 0707 Transcribed Date/Time: 01/24/25 0707 Signed Date/Time: 01/24/25 0714 [place] [id number] Diagnostic Imaging CT Report : [id number] Signed Patient: SACHA JONES Acct:[id number] Medical Record: [id number] : 1955 Loc: ED Room/Bed: Age/Sex: 69 / F ADM Status: REG ER Date of Service: 01/24/25 Ordering Physician: ALEXANDRA STARKEY MD Procedure(s): CTA CHEST PE PROTOCOL Report Number(s): [id number] Accession Number(s): [id number] cc: ALEXANDRA STARKEY MD; JOVANNY SALGADO APRN EXAM: CTA CHEST HISTORY: Shortness of breath elevated D-dimer COMPARISON: None. FINDINGS: Postcontrast helical imaging was obtained through the thorax utilizing 1.2-mm collimation. Sagittal coronal reconstructions were imaged and reviewed. 3-D volume rendered images are submitted. .. The thoracic inlet is unremarkable. The cardiac silhouette is enlarged without pericardial effusion. There is mild coronary ASVD There are subcentimeter hilar lymph nodes. There is no evidence pulmonary embolus. There are small bilateral pleural effusions with bibasilar atelectasis and/or pneumonia. There are emphysematous changes. Scattered nodular infiltrates are seen within the right upper and middle lobes suggesting pneumonia.. Small hiatal hernia.. Submucosal fat deposition suggesting chronic colitis.. Bone windows reveals no lytic or blastic lesions.. IMPRESSION: No evidence of pulmonary embolus. Cardiomegaly with coronary ASVD. Emphysematous changes. Small bilateral pleural effusions with bibasilar consolidation. Scattered nodular infiltrates within the right upper middle lobe suggesting pneumonia. All CT scans are performed using dose optimization techniques as appropriate to the performed exam and include at least one of the following: Automated exposure control, adjustment of the mA and/or kV according to size, and the use of iterative reconstruction technique. Dictated By: JAIME BELTRÁN Signed By: JAIME BELTRÁN Dictated Date/Time: 01/24/25653 Transcribed Date/Time: 01/24/2554 Signed Date/Time: 01/24/25 0711 Vital Signs: Temp Pulse Resp BP Pulse Ox O2 Del Method O2 Flow Rate 01/24/25 08:30 95 Nasal Cannula 2 01/24/25 08:12 93 L 01/24/25 04:55 93 L 01/24/25 04:30 98.1 F 76 42 H 181/73 H 89 L 08:00 - Spoke with hospitalist (Thuan Johnson PA-C) regarding patient's status and current workup and management for acute respiratory failure with hypoxemia secondary to COVID-19 pneumonia. Reassessed patient at bedside accompanied by hospitalist. Patient has been utilizing BiPAP FIO2 21%, 12/6 for a few hours now with repeat ABG suggestive of de-escalating oxygen requirement by transitioning to nasal cannula at this time. RT transitioned patient to nasal cannula at this time. Patient's breath sounds are still slightly coarse, and diminished at bases, but significantly improved wheezing and work of breathing since initial exam. Patient has received DuoNeb, 500 mL NS, Solu-Medrol 125 mg, cefepime, vancomycin. Hospitalist agrees to accept patient for admission for further workup and care as long as there is no significant change within the next hour. Patient and friend desire to stay as close to home as possible at this time. Discharge Plan Discharge Patient Disposition: ADMITTED INPATIENT Discharge Problem: COPD (chronic obstructive pulmonary disease) Qualifiers: COPD type: unspecified COPD Qualified Code(s): J44.9 - Chronic obstructive pulmonary disease, unspecified Did you review [place] [employer] for ALL controlled substances?: Not Applicable ED Provider: ALEXANDRA STARKEY
[2025-01-24 05:21] LABS: IMMATURE GRANULOCYTE # (AUTO) 0.1 (0.0-1.0); IMMATURE GRANULOCYTE % (AUTO) 0.7 % (0.0-5.0); RDW COEFFICIENT OF VARIATION 15.4 % (11.6-14.8)
[2025-01-24] MEDS: DUONEB NEB STA (05:25)
[2025-01-24 05:31] LABS: ABG O2 HGB 94.4 % (95-100); ABG PCO2 28.0 mmHg (35-45); ABG PH 7.36 (7.35-7.45); ABG PO2 178.0 mmHg (85-100); BEecf -9.6 (-2.0-3.0); FI02 50.0 %; HCO3 15.8 (21-28); TCO2 16.7 (19-24)
[2025-01-24 05:32] LABS: INR 1.13 SI (0.0-3.9)
[2025-01-24 05:39] LABS: CREATININE 1.52 mg/dL (0.60-1.30)
[2025-01-24 05:57] LABS: SARS COV-2 RNA RAPID NAAT POSITIVE (NEGATIVE)
[2025-01-24 06:01] LABS: MOLECULAR FLU A NEGATIVE BY NAAT (NEGATIVE); MOLECULAR FLU B NEGATIVE BY NAAT (NEGATIVE)
[2025-01-24 06:02] LABS: RSV MOLECULAR NEGATIVE BY NAAT (NEGATIVE)
[2025-01-24] MEDS: HUMALOG (10 ML VIAL) SUBCUT STA (06:05)
[2025-01-24] MEDS: SODIUM CHLORIDE 500 ML IV ONE (06:09)
[2025-01-24] MEDS ORDERED: ROCEPHIN 1 GM VIAL IVP ONE (06:09)
[2025-01-24] MEDS ORDERED: ZITHROMAX 500 MG in SODIUM CHLORIDE 250 ML IV ONE (06:09)
[2025-01-24] MEDS: CALCIUM CHLORIDE 10% IVP STA (06:12)
[2025-01-24] MEDS: VISIPAQUE 320 MG/ML 100ML IVP ONE (06:26)
[2025-01-24] MEDS: MAXIPIME 2 GM/50 ML D5W 2 GM/50 ML BAG IV ONE (06:46)
--- NOTE | 2025-01-24 07:11 | CT ---
EXAM: CTA CHEST HISTORY: Shortness of breath elevated D-dimer COMPARISON: None. FINDINGS: Postcontrast helical imaging was obtained through the thorax utilizing 1.2-mm collimation. Sagittal coronal reconstructions were imaged and reviewed. 3-D volume rendered images are submitted. .. The thoracic inlet is unremarkable. The cardiac silhouette is enlarged without pericardial effusion. There is mild coronary ASVD There are subcentimeter hilar lymph nodes. There is no evidence pulmonary embolus. There are small bilateral pleural effusions with bibasilar atelectasis and/or pneumonia. There are emphysematous changes. Scattered nodular infiltrates are seen within the right upper and middle lobes suggesting pneumonia.. Small hiatal hernia.. Submucosal fat deposition suggesting chronic colitis.. Bone windows reveals no lytic or blastic lesions.. IMPRESSION: No evidence of pulmonary embolus. Cardiomegaly with coronary ASVD. Emphysematous changes. Small bilateral pleural effusions with bibasilar consolidation. Scattered nodular infiltrates within the right upper middle lobe suggesting pneumonia. All CT scans are performed using dose optimization techniques as appropriate to the performed exam and include at least one of the following: Automated exposure control, adjustment of the mA and/or kV according to size, and the use of iterative reconstruction technique.
--- NOTE | 2025-01-24 07:14 | DI ---
EXAM: SINGLE-VIEW CHEST. HISTORY: Shortness of breath COMPARISON: Two-view chest 01/31/2024 FINDINGS: / impression Patient is rotated to the left. The cardiac silhouette is enlarged. The lungs are hyperinflated . There are trace bilateral pleural effusions with right basilar opacity.
[2025-01-24] MEDS: LOVENOX SUBCUT STA (07:26)
[2025-01-24 07:59] LABS: GLUCOSE, URINE (UA) Negative (NEGATIVE); LEUKOCYTE ESTERASE ,URINE Trace (NEGATIVE); URINE, BLOOD 1+ (NEGATIVE)
[2025-01-24 08:11] LABS: ABG O2 HGB 93.6 % (95-100); ABG PCO2 32.0 mmHg (35-45); ABG PH 7.32 (7.35-7.45); ABG PO2 73.0 mmHg (85-100); BEecf -9.6 (-2.0-3.0); FI02 21.0 %; HCO3 16.5 (21-28); TCO2 17.5 (19-24)
[2025-01-24 08:12] LABS: AMPHETAMINE SCREEN,URINE NEGATIVE (NEGATIVE); CANNABINOID SCREEN,URINE NEGATIVE (NEGATIVE); COCAIN SCREEN,URINE NEGATIVE (NEGATIVE); METHADONE URINE SCREEN NEGATIVE (NEGATIVE); METHAMPHETAMINES SCREEN,URINE NEGATIVE (NEGATIVE); OXYCODONE URINE SCREEN NEGATIVE (NEGATIVE); TRICYCLIC ANTIDEPRESSANTS URIN NEGATIVE (NEGATIVE)
[2025-01-24] MEDS: VANCOMYCIN 1.5 GRAM/300 ML PREMIX 1.5 GM/300 ML BAG IV ONE (08:38)
[2025-01-24 10:43] VITALS: BMI 32.5
[2025-01-24] MEDS ORDERED: ZOFRAN SDV IVP PRN (11:24)
[2025-01-24] MEDS ORDERED: DEXTROSE 50%-WATER ABBOJECT IVP PRN (11:24)
[2025-01-24] MEDS ORDERED: LEXAPRO PO SCH (11:30)
[2025-01-24] MEDS ORDERED: NON-FORMULARY MEDICATION (Ferrous Sulfate [Ferosul] 325 mg (65 mg iron) tablet) PO SCH (11:30)
--- NOTE | 2025-01-24 11:40 | PCM ---
Date of Service Date Seen by Provider: 01/24/25 Time Seen by Provider: 08:20 Admit Day/Time Admission Date: 01/24/25 Admission Time: 09:35 Reason for Admission Chief Complaint: ACUTE RESP. FAILURE W/HYPOREMIA Hospital Provider Hospital Provider: THUAN JOHNSON PA-C, [facility] [place] Primary Care Physician: JOVANNY SALGADO APRN History of Present Illness History of Present Illness: Patient is a 69-year-old female with past medical history of GERD, diabetes, depression, COPD who presents to the ER with worsening shortness of breath. She states that she was told last week she was exposed to someone that was COVID- positive and she then tested positive on 01/17. She then started developing cough and shortness of breath later this week. She called her PCP and was prescribed azithromycin and prednisone. She states that she has continued to worsen. She was unable to sleep at all last night because she she was so short of breath. Upon arrival to the ER she was noted to be labored and in respiratory distress. She was placed on BiPAP initially. After about 3 hours on BiPAP her respiratory effort had greatly improved. ABG stable. No hypercapnia. She was transitioned off of BiPAP and to nasal cannula. She has since been stable on 2 L nasal cannula. CTA showing pneumonia and small faye pleural effusions. Procal 14. She was also given Vanc, cefepime, methylprednisolone, and DuoNeb treatments. UA suspect for UTI. Patient states she is feeling much better overall. She is still significantly wheezy. Admitted to [facility]. Case Discussed With Case Discussed With: Patient's case was discussed with the ER Physicians, Dr. Hi. [facility] Medical History History of severe acute respiratory syndrome coronavirus 2 (SARS-CoV-2) disease Z86.16 - Personal history of COVID-19 (ICD-10) Diabetes E11.9 - Type 2 diabetes mellitus without complications (ICD-10) Pneumonia J18.9 - Pneumonia, unspecified organism (ICD-10) Surgical History Hx of tonsillectomy Z98.89 - Other specified postprocedural states (ICD-10) Family History Mother Diabetes FATHER Stroke SISTER Myocardial infarction Colon cancer Social History Smoking and tobacco status: Current every day smoker Tobacco type: cigarettes Tobacco: How many years used: 45 (1 PACK PER DAY) Second hand smoke exposure: Yes Alcohol intake: never Substance use type: does not use Special kyle needs: No Agree to transfusion: Yes Adopted: No Caregiver/support person: No Foster care: No Household members: none Housing: house Marital status: W / Number of children: 3 service: No senior living: No History of recent travel: No Do you think of yourself as: straight/heterosexual Current gender identity: female Seatbelt use: always Helmet use: No Drives intoxicated or rides with intoxicated bicycle taxi driver: No Water heater temperature set < 120 degrees: Yes Working smoke detector in home: Yes Fire extinguisher in home: Yes Carbon monoxide detector in home: Yes Allergies Allergies Allergy/AdvReac Type Severity Reaction Status Date / Time Penicillins AdvReac Severe Difficulty Verified 01/24/25 05:01 Breathing amitriptyline (From Elavil) AdvReac Unknown Unknown Verified 01/24/25 05:01 amoxicillin (From Amoxil) AdvReac Unknown Difficulty Verified 01/24/25 05:01 Breathing trazodone AdvReac Unknown Unknown Verified 01/24/25 05:01 Current Medications Home Medications Acetaminophen (Acetaminophen 325 Mg Tablet) 650 mg PO Q4H PRN PRN Reason: Mild Pain Albuterol/Ipratropium (Ipratropium/Albuterol Vial.Neb) 3 ml NEB RTQ6H [facility] Benzonatate (Benzonatate 100 Mg Capsule) 100 mg PO TID PRN PRN Reason: Cough Last Admin: 01/24/25 12:24 Dose: 100 mg Bisoprolol Fumarate (Bisoprolol Fumarate 5 Mg Tablet) 10 mg PO DAILY [facility] Last Admin: 01/24/25 12:24 Dose: 10 mg Brimonidine Tartrate (Brimonidine Tartrate 0.2% 5 Ml Btl) 1 drop RIGHTEYE BID [facility] Last Admin: 01/24/25 12:23 Dose: 1 drop Dexamethasone Sodium Phosphate (Dexamethasone Sod Phos 10 Mg/Ml Inj) 6 mg IVP DAILY [facility] Dextrose (Dextrose 50 % In Water 50 Ml Disp.Syrin) 50 ml IVP ONCE PRN; Protocol PRN Reason: Unconscious Hypoglycemia Ezetimibe (Ezetimibe 10 Mg Tablet) 10 mg PO QPM [facility] Enoxaparin Sodium (Enoxaparin Sodium 40 Mg/0.4 Ml Syr) 40 mg SUBCUT DAILY [facility] Escitalopram Oxalate (Escitalopram Oxalate 10 Mg Tablet) 5 mg PO DAILY [facility] Last Admin: 01/24/25 12:26 Dose: 5 mg Fenofibrate (Fenofibrate 160 Mg Tablet) 160 mg PO DAILY [facility] Last Admin: 01/24/25 12:24 Dose: 160 mg Ferrous Sulfate (Ferrous Sulfate 324 Mg Tablet.) 324 mg PO DAILY [facility] Last Admin: 01/24/25 12:24 Dose: 324 mg Folic Acid (Folic Acid 1 Mg Tablet) 1 mg PO DAILY [facility] Last Admin: 01/24/25 12:25 Dose: 1 mg Guaifenesin/Dextromethorphan (Guaifenesin/Dextromethorphan 200/20 Mg/10 Ml Cup) 5 ml PO Q4H PRN PRN Reason: Cough VANCOMYCIN/WATER FOR INJ (PEG) (Vancomycin 1 Gram/200 Ml Premix) 1 gm in 200 mls @ 200 mls/hr IV DAILY [facility] Stop: 01/28/25 08:59 CEFEPIME 2 GM/D5W (Maxipime 2 Gm/50 Ml D5w) 2 gm in 50 mls @ 100 mls/hr IV Q12HR [facility] Stop: 01/27/25 20:59 Insulin Human Lispro (Insulin Lispro 100 Unit/Ml (10 Ml Vial)) 0 unit SUBCUT PRN PRN; Protocol PRN Reason: Hyperglycemia Latanoprost (Latanoprost 2.5 Ml Opth Regi) 1 drop EACHEYE QPM [facility] Lorazepam (Lorazepam 0.5 Mg Tablet) 0.5 mg PO Q6H PRN PRN Reason: Anxiety Ondansetron HCl (Ondansetron Hcl/Pf 4 Mg/2 Ml Sdv) 4 mg IVP Q6H PRN PRN Reason: Nausea / Vomiting Pantoprazole Sodium (Pantoprazole Sodium 40 Mg Tablet.) 40 mg PO QDAC2 [facility] Last Admin: 01/24/25 12:24 Dose: 40 mg Simvastatin (Simvastatin 40 Mg Tablet) 40 mg PO QPM [facility] Sodium Chloride (0.9% Sodium Chloride 10 Ml Disp.Syrin) 1 syr IVF PRN PRN PRN Reason: To flush IV Timolol Maleate (Timolol Maleate 0.5% 5 Ml Opth Regi) 1 drop EACHEYE BID [facility] Last Admin: 01/24/25 12:27 Dose: 1 drop Tramadol HCl (Tramadol Hcl 50 Mg Tablet) 50 mg PO Q6H PRN PRN Reason: MODERATE PAIN albuterol sulfate 90 mcg/actuation aerosol inhaler (ProAir HFA) 2 puff inhalation QID PRN Bronchospasm #8.5 grams 04/09/23 [Rx Confirmed 01/24/25] semaglutide 7 mg tablet (Rybelsus) 7 mg PO QDAY #30 tabs 02/13/24 [Rx Confirmed 01/24/25] escitalopram oxalate 10 mg tablet See Rx Instructions .Route .COMPLEX #30 tabs 06/09/24 [Rx Confirmed 01/24/25] metformin 500 mg tablet 500 mg PO 2XD #180 tabs 08/18/24 [Rx Confirmed 01/24/25] pantoprazole 40 mg tablet,delayed release 40 mg PO DAILY #30 tabs 10/06/24 [Rx Confirmed 01/24/25] fenofibrate nanocrystallized 145 mg tablet 145 mg PO DAILY #90 tabs 10/27/24 [Rx Confirmed 01/24/25] sitagliptin phosphate 100 mg tablet (Januvia) 100 mg PO DAILY #90 tabs 12/08/24 [Rx Confirmed 01/24/25] azithromycin 250 mg tablet (Zithromax Z-Kenton) See Rx Instructions PO .COMPLEX #6 tabs 01/22/25 [Rx Confirmed 01/24/25] prednisone 10 mg tablet 10 mg PO BID #10 tabs 01/22/25 [Rx Confirmed 01/24/25] bisoprolol fumarate 10 mg tablet 10 mg PO QDAY 01/24/25 [History Confirmed 01/24/25] brimonidine 0.2 % eye drops 1 drp RIGHTEYE BID 01/24/25 [History Confirmed 01/24/25] ezetimibe 10 mg-simvastatin 40 mg tablet 1 tab PO QPM 01/24/25 [History Confirmed 01/24/25] ferrous sulfate 325 mg (65 mg iron) tablet (FeroSul) 325 mg PO DAILY 01/24/25 [History Confirmed 01/24/25] folic acid 1 mg tablet 1 mg PO DAILY 01/24/25 [History Confirmed 01/24/25] latanoprost 0.005 % eye drops 1 drp BOTHEYES QPM 01/24/25 [History Confirmed 01/24/25] lorazepam 0.5 mg tablet 0.5 mg PO Q6H PRN anxiety 01/24/25 [History Confirmed 01/24/25] timolol maleate 0.5 % eye drops 1 drp BOTHEYES BID 01/24/25 [History Confirmed 01/24/25] tramadol 50 mg tablet 50 mg PO Q6H PRN pain 01/24/25 [History Confirmed 01/24/25] Opioid Naive vs. Tolerant Does Patient Take Opioids?: No Is Patient Opioid Naive?: Yes What is Opioid Naive?: *Opioid Naive implies the patient is not already taking opioids or not chronically receiving opioids on a daily basis. *PRN dosing is not "usually" associated with tolerance. *Patients are at higher risk of over-sedation and aspiration. Is Patient Opioid Tolerant?: No What is Opioid Tolerant?: *Opioid Tolerance implies less than the expected response to an opioid. *Acquired tolerance is defined by the patient taking 60mg of oral morphine daily (or equianalgesic dose of another opioid) for 1 week or more. *Often associated with chronic pain. *May take more than usual dose to achieve desired pain control. Review of Systems Constitutional: Reports Fatigue, Chills and Weakness Head: Reports Normocephalic and Atraumatic Cardiovascular: Denies Chest pain, Chest Pressure or Edema Respiratory: Reports Cough and Shortness of air Gastrointestinal: Reports Diarrhea; Denies Nausea, Vomiting, Abdominal pain or Melena Genitourinary: Denies Dysuria or Frequency Neurological: Reports Weakness; Denies Headache, Syncope or Seizure Physical examination Most Recent Vital Signs: Most Recent Vital Signs Temperature 96.7 F L 01/24/25 10:31 Temperature Source Temporal Artery Scan 01/24/25 10:31 Temperature Source Infrared 01/24/25 04:30 Pulse Rate 67 01/24/25 10:31 Respiratory Rate 18 01/24/25 10:31 Blood Pressure 181/73 H 01/24/25 04:30 Blood Pressure Left Arm 183/71 01/24/25 10:31 Blood Pressure Position Supine 01/24/25 10:31 O2 Sat by Pulse Oximetry 98 01/24/25 10:31 Oxygen Delivery Method Nasal Cannula 01/24/25 10:31 Oxygen Flow Rate 2 01/24/25 10:31 Fraction of Inspired Oxygen (FIO2) 21 01/24/25 08:12 Height 5 ft 1 in 01/24/25 10:31 Weight 78.1 kg 01/24/25 10:31 Telemetry Heart Rate 94 06/19/19 13:00 Appearance: Positive No Apparent Distress, Alert and Oriented x3 and Ill- Appearing Skin: Positive [place], Warm and Good Turgor HEENT: Positive Normocephalic and Atraumatic Neck: Positive Supple and Midline Trachea Chest/Lungs: Positive Symmetrical With Equal Breath Sounds, Wheezes (in all pascual) and Other (+conversational dyspnea ) Heart: Positive RRR GI/: Positive Soft, Nontender, Bowel Sounds Normal and No Distention Extremities: Negative Edema Neurological: Positive Cranial Nerves Intact, Alert, Oriented and Other (+generalized weakness ) Psychiatric: Positive Oriented x4, Appropriate Mood and Appropriate Affect Labs This Visit Labs This Visit: Labs This Visit 01/24/25 01/24/25 01/24/25 04:55 05:12 05:40 WBC 9.15 RBC 2.40 L Hgb 8.3 L Hct 27.6 L MCV 115.0 H MCH 34.6 H MCHC 30.1 L RDW Coeff of Radha 15.4 H Plt Count 207 Immature Gran % (Auto) 0.7 Neut % (Auto) 82.3 H Lymph % (Auto) 10.7 [place] % (Auto) 6.1 Eos % (Auto) 0.1 Baso % (Auto) 0.1 Neut # (Auto) 7.5 H Lymph # (Auto) 1.0 [place] # (Auto) 0.6 Eos # (Auto) 0.0 Baso # (Auto) 0.0 Immature Gran # (Auto) 0.1 PT 11.6 H INR 1.13 Puncture Site Rr Base Excess -9.6 L O2 Saturation 99.5 H ABG pH 7.36 ABG pCO2 28.0 L ABG pO2 178.0 H ABG HCO3 15.8 L ABG Total CO2 16.7 L [place] Test Pos Hemoglobin 1.9 H Oxyhemoglobin 94.4 L Carboxyhemoglobin 2.7 H Total Hemoglobin 6.9 L O2 Delivery Device Bipap FiO2 % 50.0 Sodium 139.4 Potassium 5.05 Chloride 113.0 H Carbon Dioxide 13.0 L Anion Gap 18.45 BUN 28.0 H Creatinine 1.52 H Estimated GFR (MDRD) 34.00 BUN/Creatinine Ratio 18.42 Glucose 301.7 H Lactic Acid 1.91 Calcium 8.42 Magnesium 2.19 Total Bilirubin 0.99 AST 36.1 H ALT 17.7 Alkaline Phosphatase 81.9 Troponin I 0.024 NT-Pro-B Natriuret Pep 6080 H Total Protein 6.96 Albumin 3.40 L Globulin 3.56 Albumin/Globulin Ratio 0.95 Procalcitonin 14.73 H D-Dimer 1721.67 H Urine Color Urine Clarity Urine pH Ur Specific [place] Urine Protein Urine Glucose (UA) Urine Ketones Urine Blood Urine Nitrite Urine Bilirubin Urine Urobilinogen Ur Leukocyte Esterase Urine Microscopic WBC Ur Squamous Epith Cells Urine Bacteria Urine Opiates Screen Ur Oxycodone Screen Urine Methadone Screen Ur Barbiturates Screen U Tricyclic Antidepress Ur Phencyclidine Scrn Ur Amphetamine Screen U Methamphetamines Scrn U Benzodiazepines Scrn Urine Cocaine Screen U Cannabinoids Screen Acetone, Qual Trace Influ A Molecular Assay Negative by naat Influ B Molecular Assay Negative by naat RSV Antigen Negative by naat SARS CoV-2 RNA Rapid [place] Positive H 01/24/25 01/24/25 07:55 07:58 WBC RBC Hgb Hct MCV MCH MCHC RDW Coeff of Radha Plt Count Immature Gran % (Auto) Neut % (Auto) Lymph % (Auto) [place] % (Auto) Eos % (Auto) Baso % (Auto) Neut # (Auto) Lymph # (Auto) [place] # (Auto) Eos # (Auto) Baso # (Auto) Immature Gran # (Auto) PT INR Puncture Site Rrad Base Excess -9.6 L O2 Saturation 93.1 L ABG pH 7.32 L ABG pCO2 32.0 L ABG pO2 73.0 L ABG HCO3 16.5 L ABG Total CO2 17.5 L [place] Test Pos Hemoglobin 1.3 Oxyhemoglobin 93.6 L Carboxyhemoglobin 2.9 H Total Hemoglobin 8.0 L O2 Delivery Device Bipap FiO2 % 21.0 Sodium Potassium Chloride Carbon Dioxide Anion Gap BUN Creatinine Estimated GFR (MDRD) BUN/Creatinine Ratio Glucose Lactic Acid Calcium Magnesium Total Bilirubin AST ALT Alkaline Phosphatase Troponin I NT-Pro-B Natriuret Pep Total Protein Albumin Globulin Albumin/Globulin Ratio Procalcitonin D-Dimer Urine Color Yellow Urine Clarity Clear Urine pH 5.0 Ur Specific [place] 1.020 Urine Protein 3+ H Urine Glucose (UA) Negative Urine Ketones Negative Urine Blood 1+ H Urine Nitrite Positive H Urine Bilirubin Negative Urine Urobilinogen 0.2 Ur Leukocyte Esterase Trace H Urine Microscopic WBC 2-5 Ur Squamous Epith Cells 2-5 Urine Bacteria 1+ Urine Opiates Screen Negative Ur Oxycodone Screen Negative Urine Methadone Screen Negative Ur Barbiturates Screen Negative U Tricyclic Antidepress Negative Ur Phencyclidine Scrn Negative Ur Amphetamine Screen Negative U Methamphetamines Scrn Negative U Benzodiazepines Scrn Positive H Urine Cocaine Screen Negative U Cannabinoids Screen Negative Acetone, Qual Influ A Molecular Assay Influ B Molecular Assay RSV Antigen SARS CoV-2 RNA Rapid [place] Imaging Imaging: EXAM: SINGLE-VIEW CHEST. HISTORY: Shortness of breath COMPARISON: Two-view chest 01/31/2024 FINDINGS: / impression Patient is rotated to the left. The cardiac silhouette is enlarged. The lungs are hyperinflated . There are trace bilateral pleural effusions with right basilar opacity. EXAM: CTA CHEST HISTORY: Shortness of breath elevated D-dimer COMPARISON: None. FINDINGS: Postcontrast helical imaging was obtained through the thorax utilizing 1.2-mm collimation. Sagittal coronal reconstructions were imaged and reviewed. 3-D volume rendered images are submitted. .. The thoracic inlet is unremarkable. The cardiac silhouette is enlarged without pericardial effusion. There is mild coronary ASVD There are subcentimeter hilar lymph nodes. There is no evidence pulmonary embolus. There are small bilateral pleural effusions with bibasilar atelectasis and/or pneumonia. There are emphysematous changes. Scattered nodular infiltrates are seen within the right upper and middle lobes suggesting pneumonia.. Small hiatal hernia.. Submucosal fat deposition suggesting chronic colitis.. Bone windows reveals no lytic or blastic lesions.. IMPRESSION: No evidence of pulmonary embolus. Cardiomegaly with coronary ASVD. Emphysematous changes. Small bilateral pleural effusions with bibasilar consolidation. Scattered nodular infiltrates within the right upper middle lobe suggesting pneumonia. Review Statement Review Statement: I have independently reviewed and interpreted the labs/EKGs/imaging that were ordered by the ER provider. I have reviewed all outside records that are available currently in our EMR including imaging/notes/labs from previous visits. Plan Plan: 1. Acute respiratory failure in setting of covid 19 and pneumonia - ABG drawn while on bipap, was 89% with RR of 42 prior to bipap. Transitioned now to NC, continue to wean to RA. Duonebs prn. 2. Covid 19 - Tested positive on 01/17. Covid isolation. Out of window for remdesivir. Will do dexamethasone due to underlying COPD and wheezing. 3. CAP, RUL, likely secondary bacterial infection - cefepime and vanc for now, will deescalate tomorrow possibly. BC pending. Procal 14. LA normal. WBC count normal. 4. Metabolic acidosis - likely due to CAP, bicarb low at 13. Will recheck this afternoon. 5. DMT2 - diabeticdiet, accuchecks achs, mild humalog ss 6. Hyperlipidemia - Cont homem eds 7. Hypertension - Cont home meds 8. Acute COPD exacerbation in setting of covid 19/pna - dexamethasone 6 mg ivp, duonebs, wean O2 9. GERD -cont home meds DVT Prophylaxis: Lovenox Time Spent: Greater than 80 minutes spent with patient, 50% of the time spent with this patient was devoted to counseling and coordination of care. [facility] Plannin minutes spent discussing advance care planning. Smoking Cessation: 3minutes spent discussing smoking cessation. Admit to: Inpatient Discussed Plan of Care with Dr. Maynor Ortiz. Medications Medication Orders: Medications Ordered Category Date Time Status 0.9 % Sodium Chloride [Saline Flush] Meds 01/24/25 04:51 Active 1 syr IVF PRN PRN Acetaminophen [Tylenol] Meds 01/24/25 11:24 Active 650 mg PO Q4H PRN Benzonatate [Tessalon Perles] Meds 01/24/25 11:24 Active 100 mg PO TID PRN Bisoprolol Fumarate [Zebeta] Meds 01/24/25 11:30 Ordered 10 mg PO QDAY Brimonidine Tartrate [Brimonidine Tartrate 0.2% Opth Meds 01/24/25 11:30 Active Regi] 1 drop RIGHTEYE BID Cefepime 2 gm/D5w [Maxipime 2 gm/50 ml D5w] Meds 01/24/25 21:00 Active 2 gm in 50 ml IV Q12HR Dexamethasone Sod Phosphate [Decadron] Meds 01/25/25 09:00 Active 6 mg IVP DAILY Dextrose 50 % in Water [Dextrose 50%-Water Abboject] Meds 01/24/25 11:24 Active 50 ml IVP ONCE PRN Enoxaparin Sodium [Lovenox] Meds 01/25/25 09:00 Active 40 mg SUBCUT DAILY Escitalopram Oxalate [Lexapro] Meds 01/24/25 11:30 Ordered See Dose Instructions PO .COMPLEX Folic Acid Meds 01/24/25 11:30 Active 1 mg PO DAILY Guaifenesin/Dextromethorphan [Robitussin Dm Syrup] Meds 01/24/25 11:24 Active 5 ml PO Q4H PRN Insulin Lispro [Humalog (10 ml Vial)] Meds 01/24/25 11:24 Active See Protocol SUBCUT PRN PRN Latanoprost [Xalatan] Meds 01/24/25 17:00 Ordered 1 drop EACHEYE QPM Lorazepam [Ativan] Meds 01/24/25 11:26 Active 0.5 mg PO Q6H PRN ANX Anxiety Ondansetron HCl/Pf [Zofran Sdv] Meds 01/24/25 11:24 Ordered 4 mg IVP Q6H PRN Pantoprazole Sodium [Protonix] Meds 01/24/25 11:30 Active 40 mg PO QDAC2 Timolol Maleate 0.5% [Timoptic 0.5% Opth] Meds 01/24/25 11:30 Active 1 drop EACHEYE BID Tramadol HCl [Ultram] Meds 01/24/25 11:26 Active 50 mg PO Q6H PRN MODPAIN MODERATE PAIN Vancomycin/Water For Inj (Peg) [Vancomycin 1 Gram/200 Meds 01/25/25 09:00 Active ml Premix] 1 gm in 200 ml IV DAILY ezetimibe-simvastatin Meds 01/24/25 17:00 Ordered 1 tab PO QPM fenofibrate nanocrystallized Meds 01/24/25 11:30 Ordered 145 mg PO DAILY ferrous sulfate [FeroSul] Meds 01/24/25 11:30 Ordered 325 mg PO DAILY
[2025-01-24] MEDS: BRIMONIDINE TARTRATE 0.2% OPTH SOL RIGHTEYE SCH (12:23)
[2025-01-24] MEDS: PROTONIX PO SCH (12:24)
[2025-01-24] MEDS: FERROUS SULFATE PO SCH (12:24)
[2025-01-24] MEDS: ZEBETA PO SCH (12:24)
[2025-01-24] MEDS: TRIGLIDE PO SCH (12:24)
[2025-01-24] MEDS: TESSALON PERLES PO PRN (12:24)
[2025-01-24] MEDS: FOLIC ACID PO SCH (12:25)
[2025-01-24] MEDS: LEXAPRO PO SCH (12:26)
[2025-01-24] MEDS: TIMOPTIC 0.5% OPTH EACHEYE SCH (12:27)
[2025-01-24 15:54] LABS: CREATININE 1.5 mg/dL (0.60-1.30)
[2025-01-24] MEDS: HUMULIN R (10ML) IVP STA ×2 (16:38→17:59)
[2025-01-24] MEDS: DEXTROSE 50%-WATER ABBOJECT IVP ONE (16:39)
[2025-01-24] MEDS: ZOCOR PO SCH (16:40)
[2025-01-24] MEDS: ZETIA PO SCH (16:40)
[2025-01-24] MEDS: SODIUM CHLORIDE 1,000 ML IV SCH (16:40)
[2025-01-24] MEDS: DUONEB NEB SCH (17:00)
[2025-01-24] MEDS ORDERED: EZETIMIBE SIMVASTATIN PO SCH (17:00)
[2025-01-24] MEDS: XALATAN EACHEYE SCH (18:14)
[2025-01-24] MEDS: ATIVAN PO PRN (20:22)
[2025-01-24] MEDS: MAXIPIME 2 GM/50 ML D5W 2 GM/50 ML BAG IV SCH (20:23)
[2025-01-24] MEDS: ULTRAM PO PRN (20:32)
[2025-01-24 20:45] LABS: VBG HCO3 15.1 (22-26); VBG OXYGEN SATURATION 98.2 (60-80); VBG PCO2 28.0 (40-50); VBG PH 7.34 (7.30-7.40); VBG PO2 114.0 (36-42)
[2025-01-24 20:51] LABS: CREATININE 1.45 mg/dL (0.60-1.30)
[2025-01-24] MEDS ORDERED: SODIUM CHLORIDE IV SCH (21:30)
[2025-01-24] MEDS ORDERED: SODIUM BICARBONATE IV SCH (21:30)
[2025-01-24] MEDS: LOKELMA PO ONE (22:03)
[2025-01-24] MEDS: SODIUM BICARBONATE IV SCH (22:05)
[2025-01-24] MEDS: SODIUM CHLORIDE IV SCH (22:05)
[2025-01-25 02:31] LABS: CREATININE 1.46 mg/dL (0.60-1.30)
[2025-01-25 05:21] LABS: IMMATURE GRANULOCYTE # (AUTO) 0.0 (0.0-1.0); IMMATURE GRANULOCYTE % (AUTO) 0.5 % (0.0-5.0); RDW COEFFICIENT OF VARIATION 15.3 % (11.6-14.8)
[2025-01-25 05:35] LABS: CREATININE 1.47 mg/dL (0.60-1.30)
[2025-01-25] MEDS: VANCOMYCIN 1 GRAM/200 ML PREMIX 1 GM/200 ML BAG IV SCH (09:12)
[2025-01-25] MEDS: LOVENOX SUBCUT SCH (09:12)
[2025-01-25] MEDS: DECADRON IVP SCH (09:13)
[2025-01-25] MEDS: TYLENOL PO PRN (09:31)
[2025-01-25 09:33] LABS: ABSOLUTE RETICS # 0.063; RETICULOCYTE % 2.8 %; RETICULOCYTE HEMOGLOBIN 31.1
[2025-01-25 09:38] LABS: CREATININE 1.45 mg/dL (0.60-1.30)
--- NOTE | 2025-01-25 09:39 | PCM.PROG ---
Date/Time Seen Date Seen by Provider: 01/25/25 Time Seen by Provider: 08:40 Provider Provider: THUAN JOHNSON PA-C, [facility] Chief Complaint Chief Complaint: ACUTE RESP. FAILURE W/HYPOREMIA Subjective Subjective: Patient has been weaned to RA. Bicarb continues to be low, bicarb drip started yesterday evening. Mildly improved today. Hgb trending down. Denies black stools. Complains of a headache. Objective Appearance: Positive No Apparent Distress, Alert and Oriented x3, Ill-Appearing and Other (sitting on side of bed) Chest/Lungs: Positive Symmetrical With Equal Breath Sounds and Wheezes (much improved from yesterday ) Heart: Positive RRR GI/: Positive Soft, Nontender, Bowel Sounds Normal and No Distention Neurological: Positive Cranial Nerves Intact, Alert, Oriented and Other (+generalized weakness ) Additional Findings: no edema Vital Signs Vital Signs: Vital Signs: Last 24 Hours 01/24/25 10:00 01/24/25 10:31 01/24/25 10:31 Temperature 96.7 F L Temperature Source Temporal Artery Scan Pulse Rate 67 Respiratory Rate 18 Blood Pressure Blood Pressure Mean Blood Pressure Left Arm 183/71 Blood Pressure Location Blood Pressure Position Supine O2 Sat by Pulse Oximetry 97 98 Oxygen Delivery Method Nasal Cannula Nasal Cannula Nasal Cannula Oxygen Flow Rate 2 2 Fraction of Inspired Oxygen (FIO2) 2 Height 5 ft 1 in Weight 78.1 kg Telemetry Type Telemetry Monitoring Irregular Telemetry Rate (Approximate) Telemetry Heart Rate Telemetry SPO2 EKG IN Interval EKG QRS Interval Telemetry Strip Reading 01/24/25 13:00 01/24/25 14:00 01/24/25 14:00 Temperature 96.6 F L 96.6 F L Temperature Source Temporal Artery Scan Temporal Artery Scan Pulse Rate 62 62 Respiratory Rate 18 18 Blood Pressure 162/66 H 162/66 H Blood Pressure Mean 98 98 Blood Pressure Left Arm Blood Pressure Location Left Arm Left Arm Blood Pressure Position Sitting O2 Sat by Pulse Oximetry 96 96 Oxygen Delivery Method Nasal Cannula Nasal Cannula Oxygen Flow Rate 2 2 Fraction of Inspired Oxygen (FIO2) Height Weight Telemetry Type Bedside Monitor Telemetry Monitoring Started Irregular Telemetry Rate (Approximate) 60-70 BPM Telemetry Heart Rate 66 Telemetry SPO2 EKG IN Interval 0.15 EKG QRS Interval 0.13 H Telemetry Strip Reading [facility] 01/24/25 14:00 01/24/25 17:46 01/24/25 19:00 Temperature 97.8 F Temperature Source Temporal Artery Scan Pulse Rate 68 Respiratory Rate 22 H Blood Pressure 179/71 H Blood Pressure Mean 107 Blood Pressure Left Arm Blood Pressure Location Right Arm Blood Pressure Position Sitting O2 Sat by Pulse Oximetry 97 Oxygen Delivery Method Nasal Cannula Nasal Cannula Oxygen Flow Rate 2 2 Fraction of Inspired Oxygen (FIO2) Height Weight Telemetry Type Bedside Monitor Telemetry Monitoring Continues Irregular Telemetry Rate (Approximate) Telemetry Heart Rate 66 Telemetry SPO2 99 EKG IN Interval 0.19 EKG QRS Interval 0.11 H Telemetry Strip Reading SR W/ BBB 01/24/25 19:19 01/24/25 20:00 01/24/25 21:57 Temperature 97.8 F Temperature Source Temporal Artery Scan Pulse Rate 63 Respiratory Rate 23 H Blood Pressure 161/62 H Blood Pressure Mean 95 Blood Pressure Left Arm Blood Pressure Location Left Arm Blood Pressure Position Supine O2 Sat by Pulse Oximetry 93 L Oxygen Delivery Method Nasal Cannula Nasal Cannula Nasal Cannula Oxygen Flow Rate 2 2 2 Fraction of Inspired Oxygen (FIO2) Height Weight Telemetry Type Telemetry Monitoring Irregular Telemetry Rate (Approximate) Telemetry Heart Rate Telemetry SPO2 EKG IN Interval EKG QRS Interval Telemetry Strip Reading 01/25/25 01:00 01/25/25 05:15 01/25/25 05:22 Temperature 98.6 F Temperature Source Oral Pulse Rate 64 Respiratory Rate 24 H Blood Pressure 173/61 H Blood Pressure Mean 98 Blood Pressure Left Arm Blood Pressure Location Left Arm Blood Pressure Position Sitting O2 Sat by Pulse Oximetry 99 Oxygen Delivery Method Nasal Cannula Nasal Cannula Oxygen Flow Rate 1 1 Fraction of Inspired Oxygen (FIO2) Height Weight Telemetry Type Bedside Monitor Telemetry Monitoring Continues Irregular Telemetry Rate (Approximate) Telemetry Heart Rate 62 Telemetry SPO2 98 EKG IN Interval 0.18 EKG QRS Interval 0.11 H Telemetry Strip Reading SR W/ BBB 01/25/25 07:00 Temperature Temperature Source Pulse Rate Respiratory Rate Blood Pressure Blood Pressure Mean Blood Pressure Left Arm Blood Pressure Location Blood Pressure Position O2 Sat by Pulse Oximetry Oxygen Delivery Method Oxygen Flow Rate Fraction of Inspired Oxygen (FIO2) Height Weight Telemetry Type Bedside Monitor Telemetry Monitoring Continues Irregular Telemetry Rate (Approximate) 60-70 BPM Telemetry Heart Rate 67 Telemetry SPO2 EKG IN Interval 0.16 EKG QRS Interval 0.14 H Telemetry Strip Reading BBB Lab Results Lab Results: Lab Results: Last 24 Hours 01/25/25 01/25/25 01/25/25 09:00 04:55 02:14 WBC 7.49 RBC 2.20 L Hgb 7.6 L Hct 25.3 L MCV 115.0 H MCH 34.5 H MCHC 30.0 L RDW Coeff of Radha 15.3 H Plt Count 191 Immature Gran % (Auto) 0.5 Neut % (Auto) 72.9 Lymph % (Auto) 17.8 [place] % (Auto) 8.8 Eos % (Auto) 0.0 Baso % (Auto) 0.0 Reticulocyte % (Auto) 2.80 Neut # (Auto) 5.5 Lymph # (Auto) 1.3 [place] # (Auto) 0.7 Eos # (Auto) 0.0 Baso # (Auto) 0.0 Immature Gran # (Auto) 0.0 Absolute Retic 0.0630 Retic Hgb Equivalent 31.1 VBG pH VBG pCO2 VBG pO2 VBG HCO3 VBG O2 Saturation Sodium 139.6 138.7 Potassium 4.55 4.77 Chloride 112.0 H 112.0 H Carbon Dioxide 14.6 L 15.1 L Anion Gap 17.55 16.37 BUN 30.1 H 30.2 H Creatinine 1.47 H 1.46 H Estimated GFR (MDRD) 35.00 36.00 BUN/Creatinine Ratio 20.47 20.68 Glucose 139.2 H 135.9 H D Calcium 9.22 9.18 Magnesium 2.18 Total Bilirubin 0.81 AST 37.6 H ALT 18.4 Alkaline Phosphatase 70.6 Total Protein 6.93 Albumin 3.30 L Globulin 3.63 Albumin/Globulin Ratio 0.90 Procalcitonin 9.42 H 01/24/25 01/24/25 01/24/25 20:35 20:33 15:00 WBC RBC Hgb Hct MCV MCH MCHC RDW Coeff of Radha Plt Count Immature Gran % (Auto) Neut % (Auto) Lymph % (Auto) [place] % (Auto) Eos % (Auto) Baso % (Auto) Reticulocyte % (Auto) Neut # (Auto) Lymph # (Auto) [place] # (Auto) Eos # (Auto) Baso # (Auto) Immature Gran # (Auto) Absolute Retic Retic Hgb Equivalent VBG pH 7.34 VBG pCO2 28 L VBG pO2 114 H VBG HCO3 15.1 L VBG O2 Saturation 98.2 H Sodium 140.2 137.7 Potassium 5.86 H 5.82 H Chloride 113.6 H 112.8 H Carbon Dioxide 12.4 L 12.3 L Anion Gap 20.06 18.42 BUN 30.5 H 29.3 H Creatinine 1.45 H 1.50 H Estimated GFR (MDRD) 36.00 35.00 BUN/Creatinine Ratio 21.03 19.53 Glucose 198.6 H D 289.2 H Calcium 9.69 9.47 Magnesium Total Bilirubin AST ALT Alkaline Phosphatase Total Protein Albumin Globulin Albumin/Globulin Ratio Procalcitonin Additional Comments Additional Comments: I have independently reviewed and interpreted the labs/EKGs/imaging ordered during this hospital stay. I have reviewed outside records that are available in our EMR that pertain to medical stay including imaging/notes/labs from previous visits. Active Medications Active Medications: Medications Generic Name Dose Route Start Last Admin Trade Name Freq PRN Reason Stop Dose Admin Acetaminophen 650 mg 01/24/25 11:24 01/25/25 09:31 Acetaminophen 325 Mg Tablet PO 650 mg Q4H PRN Administration Mild Pain Albuterol/Ipratropium 3 ml 01/24/25 18:00 01/25/25 05:18 Ipratropium/Albuterol Vial.Neb NEB 3 ml RTQ6H WILL Administration Benzonatate 100 mg 01/24/25 11:24 01/25/25 09:13 Benzonatate 100 Mg Capsule PO 100 mg TID PRN Administration Cough Bisoprolol Fumarate 10 mg 01/24/25 11:30 01/25/25 09:14 Bisoprolol Fumarate 5 Mg Tablet PO 10 mg DAILY WILL Administration Brimonidine Tartrate 1 drop 01/24/25 11:30 01/25/25 09:13 Brimonidine Tartrate 0.2% 5 Ml Btl RIGHTEYE 1 drop BID WILL Administration Dexamethasone Sodium Phosphate 6 mg 01/25/25 09:00 01/25/25 09:13 Dexamethasone Sod Phos 10 Mg/Ml Inj IVP 6 mg DAILY WILL Administration Dextrose 50 ml 01/24/25 11:24 Dextrose 50 % In Water 50 Ml Disp.Syrin IVP ONCE PRN Unconscious Hypoglycemia Protocol Ezetimibe 10 mg 01/24/25 17:00 01/24/25 16:40 Ezetimibe 10 Mg Tablet PO 10 mg QPM WILL Administration Enoxaparin Sodium 40 mg 01/25/25 09:00 01/25/25 09:12 Enoxaparin Sodium 40 Mg/0.4 Ml Syr SUBCUT 40 mg DAILY WILL Administration Escitalopram Oxalate 5 mg 01/24/25 12:00 01/25/25 09:14 Escitalopram Oxalate 10 Mg Tablet PO 5 mg DAILY WILL Administration Fenofibrate 160 mg 01/24/25 12:00 01/25/25 09:14 Fenofibrate 160 Mg Tablet PO 160 mg DAILY WILL Administration Ferrous Sulfate 324 mg 01/24/25 12:00 01/25/25 09:14 Ferrous Sulfate 324 Mg Tablet.Dr PO 324 mg DAILY WILL Administration Folic Acid 1 mg 01/24/25 11:30 01/25/25 09:13 Folic Acid 1 Mg Tablet PO 1 mg DAILY WILL Administration Guaifenesin/Dextromethorphan 5 ml 01/24/25 11:24 Guaifenesin/Dextromethorphan 200/20 Mg/10 Ml Cup PO Q4H PRN Cough VANCOMYCIN/WATER FOR INJ (PEG) 1 gm in 200 mls @ 200 mls/hr 01/25/25 09:00 01/25/25 09:12 Vancomycin 1 Gram/200 Ml Premix IV 01/25/25 12:00 200 mls/hr DAILY WILL Administration CEFEPIME 2 GM/D5W 2 gm in 50 mls @ 100 mls/hr 01/24/25 21:00 01/25/25 09:11 Maxipime 2 Gm/50 Ml D5w IV 01/25/25 23:59 100 mls/hr Q12HR WILL Administration Sodium Bicarbonate 100 meq/ 1,100 mls @ 100 mls/hr 01/24/25 22:00 01/24/25 22:05 Sodium Chloride IV 100 mls/hr .Q11H WILL Administration CEFTRIAXONE/D5W 1 GM PREMIX 1 gm in 50 mls @ 100 mls/hr 01/26/25 09:00 Rocephin 1 Gm/50 Ml D5w IV 01/29/25 08:59 DAILY [facility] Insulin Human Lispro 0 unit 01/24/25 11:24 Insulin Lispro 100 Unit/Ml (10 Ml Vial) SUBCUT PRN PRN Hyperglycemia Protocol Latanoprost 1 drop 01/24/25 17:00 01/24/25 18:14 Latanoprost 2.5 Ml Opth Regi EACHEYE 1 drop QPM WILL Administration Lorazepam 0.5 mg 01/24/25 11:26 01/24/25 20:22 Lorazepam 0.5 Mg Tablet PO 0.5 mg Q6H PRN Administration Anxiety Ondansetron HCl 4 mg 01/24/25 11:24 Ondansetron Hcl/Pf 4 Mg/2 Ml Sdv IVP Q6H PRN Nausea / Vomiting Pantoprazole Sodium 40 mg 01/24/25 11:30 01/25/25 05:28 Pantoprazole Sodium 40 Mg Tablet.Dr PO 40 mg QDAC2 WILL Administration Simvastatin 40 mg 01/24/25 17:00 01/24/25 16:40 Simvastatin 40 Mg Tablet PO 40 mg QPM WILL Administration Sodium Chloride 1 syr 01/24/25 04:51 0.9% Sodium Chloride 10 Ml Disp.Syrin IVF PRN PRN To flush IV Timolol Maleate 1 drop 01/24/25 11:30 01/25/25 09:13 Timolol Maleate 0.5% 5 Ml Opth Regi EACHEYE 1 drop BID WILL Administration Tramadol HCl 50 mg 01/24/25 11:26 01/24/25 20:32 Tramadol Hcl 50 Mg Tablet PO 50 mg Q6H PRN Administration MODERATE PAIN Plan Plan: 1. Acute respiratory failure in setting of covid 19 and pneumonia - Resolved, on RA 2. Covid 19 - Tested positive on 01/17. Covid isolation. Out of window for remdesivir. Cont dexamethasone 6 mg daily due to underlying COPD and wheezing. 3. CAP, RUL, bibasilar, likely secondary bacterial infection - cefepime and vanc for now, will deescalate to rocephin and doxy. BC pending but negative so far. Procal improved today. LA normal. WBC count normal. 4. Metabolic acidosis - Requiring bicarb drip, repeat labs just drawn, will follow up. 5. DMT2 - diabetic diet, accuchecks achs, mild humalog ss 6. Hyperlipidemia - Cont home meds 7. Hypertension - Cont home meds 8. Acute COPD exacerbation in setting of covid 19/pna - dexamethasone 6 mg ivp, duonebs, wean O2 9. GERD -cont home meds 10. Hyperkalemia - resolved following lokelma, insulin/dextrose last night. Cont to monitor 11. Acute on chronic anemia - Pt sees onc outpatient. Has folate deficiency. Was offered EPO inj but declined last visit. Hgb trending down. Anemia studies ordered including occult stool. Type and screen. Consider transfusing. 12. Chronic kidney disease - at baseline 12. UTI - UC growing GNR, cont abx. DVT Prophylaxis: Lovenox - will hold due to anemia Review Statement Review Statement: I have personally discussed and reviewed the patient's visit/currently labs/imaging/decision making with Dr. Ortiz, my supervising attending. Greater that 50 minutes spent with patient, 50% of the time spent with this patient was devoted to counseling and coordination of care.
[2025-01-25 09:53] LABS: % IRON SATURATION 15.0 %
[2025-01-25 11:19] LABS: ABG O2 HGB 93.5 % (95-100); ABG PCO2 31.0 mmHg (35-45); ABG PH 7.42 (7.35-7.45); ABG PO2 64.0 mmHg (85-100); BEecf -4.4 (-2.0-3.0); FI02 21.0 %; HCO3 20.1 (21-28); TCO2 21.1 (19-24)
[2025-01-25] MEDS: LASIX IVP STA (13:23)
[2025-01-25] MEDS: HUMALOG (10 ML VIAL) SUBCUT PRN (17:38)
[2025-01-25] MEDS: ROBITUSSIN DM SYRUP PO PRN (20:41)
[2025-01-25] MEDS: VIBRAMYCIN PO SCH (20:41)
[2025-01-25] MEDS ORDERED: DOXY-100 100 MG in SODIUM CHLORIDE 100ML 100 ML IV SCH (21:00)
[2025-01-26] MEDS: HYDRALAZINE HCL IVP STA (04:01)
[2025-01-26 05:30] LABS: IMMATURE GRANULOCYTE # (AUTO) 0.0 (0.0-1.0); IMMATURE GRANULOCYTE % (AUTO) 0.3 % (0.0-5.0); RDW COEFFICIENT OF VARIATION 16.3 % (11.6-14.8)
[2025-01-26 05:45] LABS: CREATININE 1.47 mg/dL (0.60-1.30)
[2025-01-26] MEDS: ROCEPHIN 1 GM/50 ML D5W 1 GM/50 ML BAG IV SCH (08:55)
--- NOTE | 2025-01-26 09:59 | PCM.PROG ---
Date/Time Seen Date Seen by Provider: 01/26/25 Time Seen by Provider: 09:15 Provider Provider: CLAUDE ESTES, [facility] Chief Complaint Chief Complaint: ACUTE RESP. FAILURE W/HYPOREMIA Subjective Subjective: Confused and odd behavior last night. Patient states that she does this at home from time to time when she goes to sleep. Received ativan and tramadol together and could be contributing. Back on 1L of oxygen due to dropping to 89%. Also required hydralazine due to high BP. Objective Appearance: Positive No Apparent Distress and Alert and Oriented x3 Chest/Lungs: Positive Symmetrical With Equal Breath Sounds, Rhonci and Good Air Movement all 4 Lung [place]; Negative Rales or Wheezes Heart: Positive RRR and Pulses Normal GI/: Positive Soft, Nontender, Bowel Sounds Normal and No Distention Musculoskeletal: Positive Not Examined Neurological: Positive Sensation Intact, Motor intact, Reflexes Intact, Alert, Oriented and Other (generalized weakness) Vital Signs Vital Signs: Vital Signs: Last 24 Hours 01/25/25 10:00 01/25/25 10:00 01/25/25 13:00 Temperature 98.7 F Temperature Source Oral Pulse Rate 65 Respiratory Rate 16 Blood Pressure 165/58 H Blood Pressure Mean 93 Blood Pressure Location Left Arm Blood Pressure Position Sitting O2 Sat by Pulse Oximetry 98 93 L Oxygen Delivery Method Room Air Room Air Oxygen Flow Rate Telemetry Type Bedside Monitor Telemetry Monitoring Continues Irregular Telemetry Rate (Approximate) 60-70 BPM Telemetry Heart Rate 65 Telemetry SPO2 EKG NE Interval 0.14 EKG QRS Interval 0.13 H Telemetry Strip Reading BBB 01/25/25 14:00 01/25/25 14:00 01/25/25 14:53 Temperature 97.6 F 97.6 F Temperature Source Oral Pulse Rate 70 71 Respiratory Rate 20 24 H Blood Pressure 168/65 H 178/70 H Blood Pressure Mean 99 106 Blood Pressure Location Left Arm Blood Pressure Position Sitting O2 Sat by Pulse Oximetry 96 Oxygen Delivery Method Room Air Room Air Oxygen Flow Rate Telemetry Type Telemetry Monitoring Irregular Telemetry Rate (Approximate) Telemetry Heart Rate Telemetry SPO2 EKG NE Interval EKG QRS Interval Telemetry Strip Reading 01/25/25 15:08 01/25/25 16:08 01/25/25 16:08 Temperature 98.3 F 97.7 F 97.7 F Temperature Source Pulse Rate 70 68 68 Respiratory Rate 16 22 H 22 H Blood Pressure 182/78 H 168/54 H 168/54 H Blood Pressure Mean 112 92 92 Blood Pressure Location Blood Pressure Position O2 Sat by Pulse Oximetry Oxygen Delivery Method Oxygen Flow Rate Telemetry Type Telemetry Monitoring Irregular Telemetry Rate (Approximate) Telemetry Heart Rate Telemetry SPO2 EKG NE Interval EKG QRS Interval Telemetry Strip Reading 01/25/25 17:08 01/25/25 17:23 01/25/25 19:00 Temperature 97.7 F 97.7 F Temperature Source Pulse Rate 77 68 Respiratory Rate 22 H 23 H Blood Pressure 178/70 H 186/73 H Blood Pressure Mean 106 110 Blood Pressure Location Blood Pressure Position O2 Sat by Pulse Oximetry Oxygen Delivery Method Oxygen Flow Rate Telemetry Type Bedside Monitor Telemetry Monitoring Continues Irregular Telemetry Rate (Approximate) Telemetry Heart Rate 70 Telemetry SPO2 EKG NE Interval 0.18 EKG QRS Interval 0.11 H Telemetry Strip Reading SR W/ BBB 01/25/25 19:40 01/25/25 20:00 01/25/25 21:21 Temperature 98.7 F Temperature Source Oral Pulse Rate 65 Respiratory Rate 22 H 24 H Blood Pressure 150/59 H Blood Pressure Mean 89 Blood Pressure Location Left Arm Blood Pressure Position Supine O2 Sat by Pulse Oximetry 95 Oxygen Delivery Method Room Air Room Air Room Air Oxygen Flow Rate Telemetry Type Telemetry Monitoring Irregular Telemetry Rate (Approximate) Telemetry Heart Rate Telemetry SPO2 EKG NE Interval EKG QRS Interval Telemetry Strip Reading 01/26/25 01:00 01/26/25 03:30 01/26/25 04:35 Temperature 98 F Temperature Source Oral Pulse Rate 66 Respiratory Rate 23 H Blood Pressure 197/77 H 179/65 H Blood Pressure Mean 117 103 Blood Pressure Location Left Arm Left Arm Blood Pressure Position Supine Supine O2 Sat by Pulse Oximetry 94 L Oxygen Delivery Method Room Air Room Air Oxygen Flow Rate Telemetry Type Bedside Monitor Telemetry Monitoring Continues Irregular Telemetry Rate (Approximate) Telemetry Heart Rate 60 Telemetry SPO2 96 EKG NE Interval 0.18 EKG QRS Interval 0.13 H Telemetry Strip Reading SR W/ BBB 01/26/25 05:11 Temperature Temperature Source Pulse Rate Respiratory Rate Blood Pressure Blood Pressure Mean Blood Pressure Location Blood Pressure Position O2 Sat by Pulse Oximetry Oxygen Delivery Method Nasal Cannula Oxygen Flow Rate 1 Telemetry Type Telemetry Monitoring Irregular Telemetry Rate (Approximate) Telemetry Heart Rate Telemetry SPO2 EKG NE Interval EKG QRS Interval Telemetry Strip Reading Lab Results Lab Results: Lab Results: Last 24 Hours 01/26/25 01/25/25 01/25/25 05:27 18:30 11:06 WBC 3.91 L RBC 2.52 L Hgb 8.5 L 9.7 L Hct 26.5 L 31.1 L MCV 105.2 H D MCH 33.7 H MCHC 32.1 RDW Coeff of Radha 16.3 H Plt Count 149 Immature Gran % (Auto) 0.3 Neut % (Auto) 75.9 H Lymph % (Auto) 14.3 [place] % (Auto) 9.5 Eos % (Auto) 0.0 Baso % (Auto) 0.0 Neut # (Auto) 3.0 Lymph # (Auto) 0.6 [place] # (Auto) 0.4 Eos # (Auto) 0.0 Baso # (Auto) 0.0 Immature Gran # (Auto) 0.0 Puncture Site [place] Excess -4.4 L O2 Saturation 92.5 L ABG pH 7.42 ABG pCO2 31.0 L ABG pO2 64.0 L ABG HCO3 20.1 L ABG Total CO2 21.1 [place] Test Pos Hemoglobin 1.2 Oxyhemoglobin 93.5 L Carboxyhemoglobin 2.0 H Total Hemoglobin 7.6 L FiO2 % 21.0 Sodium 138.0 Potassium 3.95 Chloride 107.8 H Carbon Dioxide 19.6 L Anion Gap 14.55 BUN 35.7 H Creatinine 1.47 H Estimated GFR (MDRD) 35.00 BUN/Creatinine Ratio 24.28 Glucose 179.1 H Calcium 8.81 Magnesium 2.01 Iron TIBC % Saturation Ferritin Total Bilirubin 0.90 AST 46.1 H ALT 20.5 Alkaline Phosphatase 67.7 Total Protein 6.46 Albumin 3.11 L Globulin 3.35 Albumin/Globulin Ratio 0.92 Vitamin B12 Folate Procalcitonin 6.08 H Blood Type Antibody Screen Crossmatch ([facility]) 01/25/25 09:00 WBC RBC Hgb Hct MCV MCH MCHC RDW Coeff of Radha Plt Count Immature Gran % (Auto) Neut % (Auto) Lymph % (Auto) [place] % (Auto) Eos % (Auto) Baso % (Auto) Neut # (Auto) Lymph # (Auto) [place] # (Auto) Eos # (Auto) Baso # (Auto) Immature Gran # (Auto) Puncture Site Base Excess O2 Saturation ABG pH ABG pCO2 ABG pO2 ABG HCO3 ABG Total CO2 [place] Test Hemoglobin Oxyhemoglobin Carboxyhemoglobin Total Hemoglobin FiO2 % Sodium Potassium Chloride Carbon Dioxide Anion Gap BUN Creatinine Estimated GFR (MDRD) BUN/Creatinine Ratio Glucose Calcium Magnesium Iron 54.4 TIBC 366 % Saturation 15 Ferritin 152.00 Total Bilirubin AST ALT Alkaline Phosphatase Total Protein Albumin Globulin Albumin/Globulin Ratio Vitamin B12 831 Folate > 20.00 Procalcitonin Blood Type A POSITIVE Antibody Screen Negative Crossmatch ([facility]) See Detail Additional Comments Additional Comments: I have independently reviewed and interpreted the labs/EKGs/imaging ordered during this hospital stay. I have reviewed outside records that are available in our EMR that pertain to medical stay including imaging/notes/labs from previous visits. Active Medications Active Medications: Medications Generic Name Dose Route Start Last Admin Trade Name Freq PRN Reason Stop Dose Admin Acetaminophen 650 mg 01/24/25 11:24 01/25/25 17:41 Acetaminophen 325 Mg Tablet PO 650 mg Q4H PRN Administration Mild Pain Albuterol/Ipratropium 3 ml 01/24/25 18:00 01/26/25 05:20 Ipratropium/Albuterol Vial.Neb NEB 3 ml RTQ6H WILL Administration Benzonatate 100 mg 01/24/25 11:24 01/25/25 09:13 Benzonatate 100 Mg Capsule PO 100 mg TID PRN Administration Cough Bisoprolol Fumarate 10 mg 01/24/25 11:30 01/26/25 08:50 Bisoprolol Fumarate 5 Mg Tablet PO 10 mg DAILY WILL Administration Brimonidine Tartrate 1 drop 01/24/25 11:30 01/26/25 08:55 Brimonidine Tartrate 0.2% 5 Ml Btl RIGHTEYE 1 drop BID WILL Administration Dexamethasone Sodium Phosphate 6 mg 01/25/25 09:00 01/26/25 08:49 Dexamethasone Sod Phos 10 Mg/Ml Inj IVP 6 mg DAILY WILL Administration Dextrose 50 ml 01/24/25 11:24 Dextrose 50 % In Water 50 Ml Disp.Syrin IVP ONCE PRN Unconscious Hypoglycemia Protocol Doxycycline Hyclate 100 mg 01/25/25 21:00 01/26/25 08:50 Doxycycline Hyclate 100 Mg Capsule PO 01/30/25 11:00 100 mg Q12HR WILL Administration Ezetimibe 10 mg 01/24/25 17:00 01/25/25 17:41 Ezetimibe 10 Mg Tablet PO 10 mg QPM WILL Administration Escitalopram Oxalate 5 mg 01/24/25 12:00 01/26/25 08:51 Escitalopram Oxalate 10 Mg Tablet PO 5 mg DAILY WILL Administration Fenofibrate 160 mg 01/24/25 12:00 01/26/25 08:51 Fenofibrate 160 Mg Tablet PO 160 mg DAILY WILL Administration Ferrous Sulfate 324 mg 01/24/25 12:00 01/26/25 08:51 Ferrous Sulfate 324 Mg Tablet. PO 324 mg DAILY WILL Administration Folic Acid 1 mg 01/24/25 11:30 01/26/25 08:50 Folic Acid 1 Mg Tablet PO 1 mg DAILY WILL Administration Guaifenesin/Dextromethorphan 5 ml 01/24/25 11:24 01/25/25 20:41 Guaifenesin/Dextromethorphan 200/20 Mg/10 Ml Cup PO 5 ml Q4H PRN Administration Cough CEFTRIAXONE/D5W 1 GM PREMIX 1 gm in 50 mls @ 100 mls/hr 01/26/25 09:00 01/26/25 08:55 Rocephin 1 Gm/50 Ml D5w IV 01/29/25 08:59 100 mls/hr DAILY WILL Administration Insulin Human Lispro 0 unit 01/24/25 11:24 01/25/25 17:38 Insulin Lispro 100 Unit/Ml (10 Ml Vial) SUBCUT 10 unit PRN PRN Administration Hyperglycemia Protocol Latanoprost 1 drop 01/24/25 17:00 01/25/25 17:43 Latanoprost 2.5 Ml Opth Regi EACHEYE 1 drop QPM WILL Administration Lorazepam 0.5 mg 01/24/25 11:26 01/25/25 20:41 Lorazepam 0.5 Mg Tablet PO 0.5 mg Q6H PRN Administration Anxiety Ondansetron HCl 4 mg 01/24/25 11:24 Ondansetron Hcl/Pf 4 Mg/2 Ml Sdv IVP Q6H PRN Nausea / Vomiting Pantoprazole Sodium 40 mg 01/24/25 11:30 01/26/25 05:29 Pantoprazole Sodium 40 Mg Tablet. PO 40 mg QDAC2 WILL Administration Simvastatin 40 mg 01/24/25 17:00 01/25/25 17:41 Simvastatin 40 Mg Tablet PO 40 mg QPM WILL Administration Sodium Chloride 1 syr 01/24/25 04:51 0.9% Sodium Chloride 10 Ml Disp.Syrin IVF PRN PRN To flush IV Timolol Maleate 1 drop 01/24/25 11:30 01/26/25 08:50 Timolol Maleate 0.5% 5 Ml Opth Regi EACHEYE 1 drop BID WILL Administration Tramadol HCl 50 mg 01/24/25 11:26 01/25/25 20:41 Tramadol Hcl 50 Mg Tablet PO 50 mg Q6H PRN Administration MODERATE PAIN Plan Plan: 1. Acute respiratory failure in setting of covid 19 and pneumonia - Regressed, back on 1L this am 2. Covid 19 - Tested positive on 01/17. Covid isolation. Out of window for remdesivir. Cont dexamethasone 6 mg daily due to underlying COPD and wheezing. 3. CAP, RUL, bibasilar, likely secondary bacterial infection - Deescalated to rocephin and doxy. BC negative. Procal improving. LA normal. WBC count normal. 4. Metabolic acidosis - Improving, bicarb up to 20 this am 5. DMT2 - diabetic diet, accuchecks achs, mild humalog ss 6. Hyperlipidemia - Cont home meds 7. Hypertension - Cont home meds 8. Acute COPD exacerbation in setting of covid 19/pna - dexamethasone 6 mg ivp, duonebs, wean O2 9. GERD -cont home meds 10. Hyperkalemia - resolved following lokelma, insulin/dextrose last night. Cont to monitor 11. Acute on chronic anemia - Pt sees onc outpatient. Has folate deficiency. Was offered EPO inj but declined last visit. Hgb trended down - 1 unit given yesterday and hemoglobin improved but dropped again this am. Awaiting occult stool collection today. 12. Chronic kidney disease - at baseline 13. UTI - UC growth of klebsiella aerogenes, covered with rocephin 14. Acute Metabolic Encephalopathy - likely due to multiple contributing factors above, will discussed with nursing to avoid giving ativan and tramadol together at bedtime and throughout the day, monitor 15. Elevated BNP - last echo 2019 with EF of 45-50%, unable to complete inhouse at this time, will order outpatient for PCP to follow upon discharge DVT Prophylaxis: Lovenox - will hold due to anemia Review Statement Review Statement: I have personally discussed and reviewed the patient's visit/currently labs/imaging/decision making with Dr. Ortiz, my supervising attending. Greater that 50 minutes spent with patient, 50% of the time spent with this patient was devoted to counseling and coordination of care.
[2025-01-26 15:23] LABS: OCCULT BLOOD SAMPLE 1 POSITIVE (NEGATIVE); OCCULT BLOOD SAMPLE 2 NO SPECIMEN RECEIVED (NEGATIVE); OCCULT BLOOD SAMPLE 3 NO SPECIMEN RECEIVED (NEGATIVE)
[2025-01-26] MEDS: PROTONIX PO SCH (17:01)
[2025-01-26 22:12] VITALS: PULSE 64
[2025-01-27 05:12] VITALS: TEMP 97.6
[2025-01-27] MEDS: HYDRALAZINE HCL IVP PRN (05:20)
[2025-01-27 05:27] LABS: IMMATURE GRANULOCYTE # (AUTO) 0.0 (0.0-1.0); IMMATURE GRANULOCYTE % (AUTO) 0.5 % (0.0-5.0); RDW COEFFICIENT OF VARIATION 15.9 % (11.6-14.8)
[2025-01-27 05:40] LABS: CREATININE 1.4 mg/dL (0.60-1.30)
[2025-01-27 05:59] VITALS: BP 129/52
[2025-01-27] MEDS: COZAAR PO SCH (08:59)
--- NOTE | 2025-01-27 10:51 | DCSUM ---
Admission Date Admission Date: 01/24/25 Discharge Date Discharge Date: 01/27/25 Admission Diagnosis Admission Diagnosis: 1. Acute respiratory failure in setting of covid 19 and pneumonia 2. Covid 19 3. CAP, RUL, likely secondary bacterial infection 4. Metabolic acidosis 5. DMT2 6. Hyperlipidemia 7. Hypertension 8. Acute COPD exacerbation in setting of covid 19/pna 9. GERD Discharge Diagnosis Discharge Diagnosis: 1. Acute respiratory failure in setting of covid 19 and pneumonia - Resolved 2. Covid 19 - Improved, Tested positive on 01/17. Covid isolation. 3. CAP, RUL, bibasilar, likely secondary bacterial infection - Improved 4. Metabolic acidosis - Resolved 5. DMT2 - chronic, stable 6. Hyperlipidemia - Chronic, stable 7. Hypertension - Chronic, uncontrolled, adjusted home regimen 8. Acute COPD exacerbation in setting of covid 19/pna - Improved 9. GERD - chronic, stable 10. Hyperkalemia - resolved following lokelma, insulin/dextrose 11. Acute on chronic anemia - Pt sees onc outpatient. Has folate deficiency. Was offered EPO inj but declined last visit. Hgb trended down - 1 unit given and hemoglobin stable. Positive occult stool. Apt set up with GI Dr. Ortega 12. Chronic kidney disease - at baseline 13. UTI - UC growth of klebsiella aerogenes, covered with rocephin, rx sent cefpoxime 14. Acute Metabolic Encephalopathy - Resolved 15. Elevated BNP - last echo 2019 with EF of 45-50%, unable to complete inhouse at this time, ordered echo outpatient Hospital Provider Hospital [facility] Physician Primary Care Physician: JOVANNY SALGADO APRN Summary of History and Physical Summary of History and Physical: Patient is a 69-year-old female with past medical history of GERD, diabetes, depression, COPD who presents to the ER with worsening shortness of breath. She states that she was told last week she was exposed to someone that was COVID- positive and she then tested positive on 01/17. She then started developing cough and shortness of breath later this week. She called her PCP and was prescribed azithromycin and prednisone. She states that she has continued to worsen. She was unable to sleep at all last night because she she was so short of breath. Upon arrival to the ER she was noted to be labored and in respiratory distress. She was placed on BiPAP initially. After about 3 hours on BiPAP her respiratory effort had greatly improved. ABG stable. No hypercapnia. She was transitioned off of BiPAP and to nasal cannula. She has since been stable on 2 L nasal cannula. CTA showing pneumonia and small faye pleural effusions. Procal 14. She was also given Vanc, cefepime, methylprednisolone, and DuoNeb treatments. UA suspect for UTI. Patient states she is feeling much better overall. She is still significantly wheezy. Admitted to [facility]. Hospital Course Subjective: Initially, ABG drawn while on bipap, was 89% with RR of 42 prior to bipap. Transitioned to NC. Duonebs ordered prn. Weaned to RA and tolerating well. Tested positive for Covid-19 on 01/17. Out of window for remdesivir. Given dexamethasone due to underlying COPD and wheezing. CAP, RUL, likely secondary bacterial infection - initially received cefepime and vanc, blood cultures neg, deescalated to rocephin and doxy. Procal trended down. Metabolic acidosis - present on admission, started bicarb gtt due to continued drop and did not want to risk fluid overload with already elevated BNP and shortness of breath. Greatly improved with gtt and back to normal today. Acute on chronic anemia - Pt sees onc outpatient. Has folate deficiency. Was offered EPO inj but declined last visit. Hgb trending down. Anemia studies ordered including occult stool. 1 unit of PRNC given and improvement noted in hemoglobin. Anemia studies normal. Occult stool positive. Has not had colonoscopy recently. Setup appointment with Dr. Jordan MAYES who she has seen in the past. Hemoglobin stable at this time. Urine culture growth of klebsiella aerogenes. Covered with rocephin. Rx sent for cefpoxime to cover pneumonia and uti as well as rest of doxy course. Patient had episode of confusion but likely due to covid, pneumonia, and UTI as well as taking tramadol and ativan together. RNs instructed to avoid giving medications together. Patient mentally more clear >24 hours and back to baseline. BP elevated last 2 nights. Started losartan and improved. PT saw patient and ambulating well. Of note, elevated BNP on admission with sob and edema with new BBB. Last echo completed 2019 with EF of 45-50%. Unable to complete in house at this time. Order sent to be completed outpatient upon discharge. PCP to follow. Labs back to baseline. VSS. Follow-up with pcp and GI Appearance: Pleasant, No Apparent Distress and Alert HEENT: MMM, Supple and No JVD CVS: No Murmur and No Rubs Abdomen: Soft and Non-Tender Respiratory: No Dyspnea Extremities: No Edema Vital Signs: Most Recent Vital Signs Temperature 97.6 F 01/27/25 05:08 Temperature Source Oral 01/27/25 05:08 Temperature Source Infrared 01/24/25 04:30 Pulse Rate 64 01/27/25 05:59 Respiratory Rate 20 01/27/25 05:59 Blood Pressure 129/52 L 01/27/25 05:59 Blood Pressure Mean 77 01/27/25 05:59 Blood Pressure Left Arm 183/71 01/24/25 10:31 Blood Pressure Location Left Arm 01/27/25 05:59 Blood Pressure Position Supine 01/27/25 05:59 O2 Sat by Pulse Oximetry 92 L 01/27/25 10:00 Oxygen Delivery Method Room Air 01/27/25 10:00 Oxygen Flow Rate 1 01/26/25 11:19 Fraction of Inspired Oxygen (FIO2) 2 01/24/25 10:31 Height 5 ft 1 in 01/24/25 10:31 Weight 78.1 kg 01/24/25 10:31 Telemetry Type Bedside Monitor 01/27/25 07:00 Telemetry Monitoring Continues 01/27/25 00:39 Irregular Telemetry Rate (Approximate) 60-70 BPM 01/25/25 13:00 Telemetry Heart Rate 65 01/27/25 07:00 Telemetry SPO2 94 01/27/25 00:39 EKG NC Interval 0.13 01/27/25 07:00 EKG QRS Interval 0.12 H 01/27/25 07:00 Telemetry Strip Reading NSR with BBB 01/27/25 07:00 Imaging: EXAM: SINGLE-VIEW CHEST. HISTORY: Shortness of breath COMPARISON: Two-view chest 01/31/2024 FINDINGS: / impression Patient is rotated to the left. The cardiac silhouette is enlarged. The lungs are hyperinflated . There are trace bilateral pleural effusions with right basilar opacity. EXAM: CTA CHEST HISTORY: Shortness of breath elevated D-dimer COMPARISON: None. FINDINGS: Postcontrast helical imaging was obtained through the thorax utilizing 1.2-mm collimation. Sagittal coronal reconstructions were imaged and reviewed. 3-D volume rendered images are submitted. .. The thoracic inlet is unremarkable. The cardiac silhouette is enlarged without pericardial effusion. There is mild coronary ASVD There are subcentimeter hilar lymph nodes. There is no evidence pulmonary embolus. There are small bilateral pleural effusions with bibasilar atelectasis and/or pneumonia. There are emphysematous changes. Scattered nodular infiltrates are seen within the right upper and middle lobes suggesting pneumonia.. Small hiatal hernia.. Submucosal fat deposition suggesting chronic colitis.. Bone windows reveals no lytic or blastic lesions.. IMPRESSION: No evidence of pulmonary embolus. Cardiomegaly with coronary ASVD. Emphysematous changes. Small bilateral pleural effusions with bibasilar consolidation. Scattered nodular infiltrates within the right upper middle lobe suggesting pneumonia. Lab Results Last 24 Hours: 01/27/25 01/26/25 05:24 15:15 WBC 3.79 L RBC 2.64 L Hgb 8.8 L Hct 27.8 L MCV 105.3 H MCH 33.3 H MCHC 31.7 L RDW Coeff of Radha 15.9 H Plt Count 150 Immature Gran % (Auto) 0.5 Neut % (Auto) 72.9 Lymph % (Auto) 18.2 Potter % (Auto) 8.4 Eos % (Auto) 0.0 Baso % (Auto) 0.0 Neut # (Auto) 2.8 Lymph # (Auto) 0.7 Potter # (Auto) 0.3 L Eos # (Auto) 0.0 Baso # (Auto) 0.0 Immature Gran # (Auto) 0.0 Sodium 139.1 Potassium 4.23 Chloride 107.1 H Carbon Dioxide 22.3 Anion Gap 13.93 BUN 36.8 H Creatinine 1.40 H Estimated GFR (MDRD) 38.00 BUN/Creatinine Ratio 26.28 Glucose 138.2 H Calcium 9.04 Total Bilirubin 0.67 AST 57.4 H ALT 23.3 Alkaline Phosphatase 69.9 Total Protein 6.66 Albumin 3.21 L Globulin 3.45 Albumin/Globulin Ratio 0.93 Procalcitonin 3.34 H Stl Occult Blood (IFOB) Positive Stool Occult Blood #2 No specimen received Stool Occult Blood #3 No specimen received Discharge Instructions Discharge Planning: Discharge Planning > 40 minutes If patient is discharged with left ventricular systolic dysfunction: no Discharged with a beta renetta? [] If no, why not? [] Discharged with an john/arb? [] If no, why not? [] Discharge Medications: Medications at Discharge (Home Meds & RX) albuterol sulfate 90 mcg/actuation aerosol inhaler (ProAir HFA) 2 puff inhalation QID PRN Bronchospasm #8.5 grams 04/09/23 metformin 500 mg tablet 500 mg PO 2XD #180 tabs 08/18/24 fenofibrate nanocrystallized 145 mg tablet 145 mg PO DAILY #90 tabs 10/27/24 sitagliptin phosphate 100 mg tablet (Januvia) 100 mg PO DAILY #90 tabs 12/08/24 azithromycin 250 mg tablet (Zithromax Z-Kenton) See Rx Instructions PO .COMPLEX #6 tabs 01/22/25 prednisone 10 mg tablet 10 mg PO BID #10 tabs 01/22/25 brimonidine 0.2 % eye drops 1 drp RIGHTEYE BID 01/24/25 ezetimibe 10 mg-simvastatin 40 mg tablet 1 tab PO QPM 01/24/25 ferrous sulfate 325 mg (65 mg iron) tablet (FeroSul) 325 mg PO DAILY 01/24/25 folic acid 1 mg tablet 1 mg PO DAILY 01/24/25 latanoprost 0.005 % eye drops 1 drp BOTHEYES QPM 01/24/25 lorazepam 0.5 mg tablet 0.5 mg PO Q6H PRN anxiety 01/24/25 timolol maleate 0.5 % eye drops 1 drp BOTHEYES BID 01/24/25 bisoprolol fumarate 10 mg tablet 10 mg PO QDAY #90 tabs 01/26/25 cefpodoxime 100 mg tablet 100 mg PO BID #6 tabs 01/27/25 doxycycline hyclate 100 mg capsule 100 mg PO Q12HR #6 caps 01/27/25 escitalopram oxalate 10 mg tablet See Rx Instructions .Route .COMPLEX #30 tabs 01/27/25 losartan 25 mg tablet 25 mg PO DAILY #30 tabs 01/27/25 pantoprazole 40 mg tablet,delayed release 40 mg PO BIDAC2 #60 tabs 01/27/25 pantoprazole 40 mg tablet,delayed release 40 mg PO DAILY #30 tabs 01/27/25 tramadol 50 mg tablet 50 mg PO BID PRN pain #60 tabs 01/27/25 Discharge Plan Discharge Discharge Orders: Discharge Patient (ONCE); Ordered 01/27/25 Ordered By: HARSHAL VALLADARES Activity Restrictions/Additional Instructions: Diagnosis: Covid-19, Pneumonia, UTI Diet: Diabetic, be sure to continue to drink plenty of fluids. Take antibiotics with food. Activity: as tolerated, get up and move at least hourly. Cough and take good deep breaths. Medications: [facility] 1 * Cefpodoxime - take twice a day for 3 days (antibiotic for pneumonia and UTI, start tomorrow) * Doxycycline - take twice a day for 3 days (antibiotic for pneumonia, next dose this evening) * Losartan 25 mg daily for high blood pressure * Protonix - take twice a day until changed by GI provider. This was adjusted due to blood in your stool. Follow-up with primary care provider and GI as scheduled. An Echo has been ordered to evaluate your heart due to changes in your heart rhythm and swelling in your ankles. This is scheduled for 02/06/25 at 9am. Please arrive 15 minutes early. If you have any questions or need to make changed to this appointment, please call [phone]. Instructions: Urinary Tract Infection in Women (GEN), Pneumonia (GEN), COVID-19 (Coronavirus Disease 2019) (GEN) Patient Disposition: HOME WITH FAMILY CARE Prescriptions: New doxycycline hyclate 100 mg Capsule 100 mg PO Q12HR Qty: 6 0RF pantoprazole 40 mg Tablet,Delayed Release (Dr/Ec) 40 mg PO BIDAC2 Qty: 60 0RF losartan 25 mg Tablet 25 mg PO DAILY Qty: 30 0RF cefpodoxime 100 mg tablet 100 mg PO BID Qty: 6 0RF Rx Instructions: must administer with a meal/food, start tomorrow Continued metformin 500 mg tablet 500 mg PO 2XD Qty: 180 3RF fenofibrate nanocrystallized 145 mg tablet 145 mg PO DAILY Qty: 90 3RF Januvia 100 mg tablet 100 mg PO DAILY Qty: 90 3RF prednisone 10 mg tablet 10 mg PO BID Qty: 10 0RF bisoprolol fumarate 10 mg tablet 10 mg PO QDAY Qty: 90 1RF pantoprazole 40 mg tablet,delayed release (DR/EC) 40 mg PO DAILY Qty: 30 2RF tramadol 50 mg tablet 50 mg PO BID PRN (Reason: pain) Qty: 60 1RF escitalopram oxalate 10 mg tablet See Rx Instructions .ROUTE .COMPLEX Qty: 30 3RF Dose Instruction: TAKE ONE TABLET DAILY Patient Comments: pt states takes 1/2 PRN Rx Instructions: TAKE ONE TABLET DAILY folic acid 1 mg tablet 1 mg PO DAILY brimonidine 0.2 % drops 1 drp RIGHTEYE BID timolol maleate 0.5 % drops 1 drp BOTHEYES BID latanoprost 0.005 % drops 1 drp BOTHEYES QPM lorazepam 0.5 mg tablet 0.5 mg PO Q6H PRN (Reason: anxiety) ferrous sulfate [FeroSul] 325 mg (65 mg iron) tablet 325 mg PO DAILY ezetimibe-simvastatin 10-40 mg tablet 1 tab PO QPM Discontinued Rybelsus 7 mg tablet 7 mg PO QDAY Qty: 30 3RF No Action albuterol sulfate [ProAir HFA] 90 mcg/actuation HFA aerosol inhaler 2 puff INHALATION QID PRN (Reason: Bronchospasm) Qty: 8.5 2RF azithromycin [Zithromax Z-Kenton] 250 mg tablet See Rx Instructions PO .COMPLEX Qty: 6 0RF Rx Instructions: For 250 mg dose pack: take 500 mg today (day 1), then 250 mg for 4 days (days 2-5) PO Did you review [place] OFFICE DIRECTOR for ALL controlled substances?: No Discussed opioids are addictive and Narcan is available by prescription or from pharmacy.: No Condition: Fair Referrals: KATHERINE ORTEGA [REFERRING, GASTRO] - 02/18/25 9:30 am Referral Note: [address] [facility] 3 JOVANNY SALGADO APRN [Primary Care Provider, INTERNAL MEDICINE] - 02/03/25 11:20 am
[2025-01-27 11:06] VITALS: RESP 18
[2025-01-28 15:18] LABS: STEP PNEUMO ORGANISM ID Not indicated. (.); STREP PNEUMO AG Negative (Negative); STREP PNEUMO BODY FLUID CULT Not indicated. (.)
== END 2025-01-27 12:55 | disposition home or self-care (01) ==
LOC: ED 04:29 → SCU 09:45
PROVIDERS: ADMIT Hospitalist; ATTEND Nurse Practitioner Family